=== PATIENT | female | born 1955 | race Caucasian/White ===

== ENCOUNTER 2016-11-03 12:26 | Emergency (ER) | payer MEDICARE, OTHER ==
[~2016-11-03] VITALS: Ht 165.1 cm; Wt 68.0 kg
[~2016-11-03 12:26] MED LIST: ADVAIR 250-501 EACH INH; ALBUTEROL2.5 MG/0.5 NEB; ALPRAZOLAM0.5 MG PO; AMITRIPTYLINE100 MG PO; BACLOFEN10 MG PO; BENEFIBER1 EAC1 PO; BUPROPION XL150 MG PO; CAPZASIN-HP42.5 GM TOP; CITALOPRAM HBR40 MG PO; COLACE100 MG; COMBIVENT RESPIM4 GM INH; GABAPENTIN300 MG PO; GINKGO BILOBA120 M1 PO; GREEN COFFEE B400 MG PO; IPRATROPIU0.2 MG/1 M INH; LISINOPRIL10 MG PO; MELATONIN5 M2 PO; MELOXICAM7.5 MG PO; MIRALAX17 GM PO; NORCO 10-325 T1 EACH PO; PROBIOTIC1 EAC1 PO; RANITIDINE HCL150 MG PO; ZINC GLUCONATE100 MG PO; [UNRECOGNIZED DRUG - OTHER] MC
[2016-11-03] MEDS ORDERED: PREDNISONE20 MG PO (13:05)
== END 2016-11-03 13:59 | disposition home or self-care (01) ==
LOC: ED 12:26
DX: G89.18 Other acute postprocedural pain (principal); M54.2 Cervicalgia; J44.9 Chronic obstructive pulmonary disease, unspecified; I10 Essential (primary) hypertension; Z87.891 Personal history of nicotine dependence; Z88.8 Allergy status to other drugs, medicaments and biological substances; Z79.51 Long term (current) use of inhaled steroids; Z79.899 Other long term (current) drug therapy; Z79.891 Long term (current) use of opiate analgesic
CPT/HCPCS: 96374; 99283; J1100

== ENCOUNTER 2016-11-16 18:03 | Inpatient (IN) | payer MEDICARE, OTHER ==
[~2016-11-16] VITALS: Ht 165.1 cm; Wt 76.7 kg
[~2016-11-16 18:03] MED LIST changes: +PREDNISONE20 MG PO
--- NOTE | 2016-11-17 00:45 | NUR ---
PT ARRIVED TO UNIT VIA STRETCHER FROM E.D. PT ALERT AND ORIENTED, WIMPERING AND GRIMACING. PT AMBULATED WITH SBA FROM STRETCHER TO BED. HISTORY AND ADMISSION ASSESSMENTS COMPLETE. PT ON 2 LPM O2 PT STATES SHE WEARS IT AT NIGHT, SATS 96%. PT DENIES ANY N/V AT THIS TIME. PT C/O "ESOPHAGUS" PAIN 07/20, PT STATES "MY ESOPHAGUS HURTS FROM ACID REFLUX", 0.6 MG IV DILAUDID GIVEN. IV FLUIDS INITIATED PER MD ORDERS. PT NOW RESTING QUIETLY IN BED. ICE CHIPS AND WATER AT BEDSIDE PER MD REQUEST. CALL LIGHT WITHIN REACH. PT DENIES ANY FURTHER NEEDS AT THIS TIME.
--- NOTE | 2016-11-17 03:45 | NUR ---
PT SLEEPING, RR EVEN AND UNLABORED. PT ON 2 LPM O2 WHILE SLEEPING. PT ON TELEMETRY, SINUS RHTYHM, HR 91. IV FLUIDS INFUSING WITHOUT DIFFICULTY. CALL LIGHT WITHIN REACH. PT APPEARS COMFORTABLE AT THIS TIME.
--- NOTE | 2016-11-17 07:10 | NUR ---
REPORT RECIEVED FROM PRUDENCE JAIN. PT MOANING AND STATES SHE IS A LOT OF PAIN. RN STATES SHE JUST HAD SOME. IVF INFUSING SLOW DUE TO SMALL IV
--- NOTE | 2016-11-17 08:55 | NUR ---
PT. IS TEARFUL AND ANXIOUS IN BED. SPEAKING WITH MOTHER ON PHONE. MORNING MEDS GIVEN, ASSESSMENT DONE, PT. BACK IN BED AFTER CXR. IV IS POSITIONAL.
--- NOTE | 2016-11-17 09:15 | NUR ---
PT. IS STILL TEARFUL IN BED. CLEAR LIQUIDS AT BEDSIDE. ADMINISTERED AB. PT. STATES THAT MD WAS IN ROOM SPEAKING WITH HER ABOUT HER CONDITION. PT. HAS NO FURTHER NEEDS AT THIS TIME.
--- NOTE | 2016-11-17 09:39 | NUR ---
PT. IN BATHROOM. PAIN MEDICATION GIVEN PER 11/19 PAIN. PT. REQUESTING ICE PACK FOR HEAD. NO FURTHER NEEDS AT THIS TIME.
--- NOTE | 2016-11-17 11:00 | NUR ---
PT. TEARFUL IN BED. PT. STATES THAT SHE IS ANXIOUS BUT HER MEDICATIONS HELP HER. MEDS ADMINISTERED. PAIN IS NOW AT 3/10 AFTER PAIN MEDICATION ADMINISTRATION. NO FURTHER NEEDS AT THIS TIME.
--- NOTE | 2016-11-17 11:05 | NUR ---
vitals done. BP 105/52.
--- NOTE | 2016-11-17 11:20 | NUR ---
PATIENT IN BED MOANING. FEELS CLAMY TO THE TOUCH. PULL PATIENTS HAIR UP INTO A PONYTAIL. FRESH ICE WATER GIVEN. ICE CHIPS GIVEN. CALL BUTTON IN REACH NO OTHER NEEDS AT THIS TIME.
--- NOTE | 2016-11-17 11:49 | NUR ---
PRUDENCE CARRILLO TRIED TO GET ANOTHER IV HAND IS VERY POSITIONAL. PT TOLERATED WELL. UNABLE TO GET NEW IV.
--- NOTE | 2016-11-17 12:37 | NUR ---
PT. UP TO BATHROOM. REQUESTING MEDICATION FOR ESOPHAGEAL UPSET. PAIN IS 5/10. NO OTHER NEEDS AT THIS TIME.
[2016-11-17] MEDS ORDERED: CLONAZEPAM0.5 MG PO (13:38)
[2016-11-17] MEDS ORDERED: LIPITOR40 MG PO (13:38)
[2016-11-17] MEDS ORDERED: CYMBALTA60 MG PO (13:39)
[2016-11-17] MEDS ORDERED: CYMBALTA30 MG PO (13:39)
[2016-11-17] MEDS ORDERED: SPIRIVA18 MCG INH (13:40)
[2016-11-17] MEDS ORDERED: OMEPRAZOLE20 MG PO (13:41)
[2016-11-17] MEDS ORDERED: CLOBETASOL PROP15 GM TOP (13:41)
[2016-11-17] MEDS ORDERED: PREMARIN0.625 MG PO (13:43)
[2016-11-17] MEDS ORDERED: CYCLOBENZAPRINE10 MG PO (13:43)
[2016-11-17] MEDS ORDERED: CENTRUM SILVER1 EAC3 PO (13:44)
[2016-11-17] MEDS ORDERED: INCRUSE ELLI62.5 MCG INH (13:45)
[2016-11-17] MEDS ORDERED: PREPARATION H1 EAC3 PR (13:46)
--- NOTE | 2016-11-17 13:47 | NUR ---
MED REC COMPLETE
--- NOTE | 2016-11-17 14:03 | NUR ---
PT. RESTING IN BED WATCHING TV. PT. STATES HAS 3/10 PAIN IN CHEST DUE TO STOMACH ACIDITY. PAIN MEDICATION STITCH BONDING MACHINE DRAWER IN PER EMAR. OTHER MEDICATIONS GIVEN. PT. CURIOUS ABOUT STOOL SAMPLE RESULTS. TOLD HER THERE ARE NO RESULTS YET. NO FURTHER NEEDS AT THIS TIME.
--- NOTE | 2016-11-17 14:10 | NUR ---
PT IN POSITION CLUTCHING PILLOW. SHE SAID HER PAIN IS 4-5. TEARS FLOWED SHE TOLD ME OF A RECENT NECK SURGERY THAT SHE WONDERS IS CAUSING HER PAIN. WE DEBRIEFED ABOUT THIS, PT REQUESTED PRAYER. PRAYED FOR WISDOM FOR THE MED STAFF. SHE THANKED ME FOR COMING IN. WILL CONTINUE TO FOLLOW
--- NOTE | 2016-11-17 15:30 | NUR ---
patient refused shower. would like to bathe when her daughter arrives to assist her. fresh ice water and ice chips given call button in reach no other needs at this time.
--- NOTE | 2016-11-17 15:47 | NUR ---
ORDER RECEIVED FOR PICC LINE CONSULT. PT'S CHART REVIEWED AND INFORMED CONSENT OBTAINED FROM PATIENT. SITE RITE ULTRASOUND USED TO IDENTIFY RIGHT BASILIC VEIN, WHICH APPEARS LARGER THAN 8 UKRAINIAN. 3 UKRAINIAN MIDLINE INSERTED USING STERILE TECHNIQUE WITHOUT DIFFICULTY. VERBAL REPORT GIVEN TO ROMEO CANALES RN AND SHE VERBALIZES UNDERSTANDING. PATIENT EDUCATION DONE AND SHE VERBALIZES UNDERSTANDING.
--- NOTE | 2016-11-17 16:22 | NUR ---
PT. RESTING IN BED WATCHING TV. MAALOX GIVEN FOR HEART BURN. NO FURTHER NEEDS AT THIS TIME.
--- NOTE | 2016-11-17 17:04 | NUR ---
TRANSFERED PT. TO CHAIR. WATCHING TELEVISION. DINNER AT BEDSIDE. STATES THAT SHE HAS REILEF OF EPIGASTRIC PAIN AFTER MAALOX ADMINISTRATION. NO FURTHER NEEDS AT THIS TIME.
--- NOTE | 2016-11-17 18:09 | NUR ---
PT. HAS BEEN TEARFUL AND ANXIOUS THROUGHOUT THE SHIFT. MEDICATIONS GIVEN PER EMAR. NO COMPLAINTS OF N/V AND HAD A FORMED STOOL IN THE AM. PT. ALSO COMPLAINED OF NECK PAIN AND STATED THAT SHE WEARS A NECK BRACE AT HOME. DAUGHTER BROUGHT NECK BRACE FROM HOME THIS EVENING. EPIGASTRIC PAIN WAS TREATED WITH MAALOX AND PT. STATES SHE HAD RELIEF AFTER ADMINISTRATION. PT. HAS EXTENSIVE BRUISING ON BUE. VITALS STABLE THROUGHOUT SHIFT. NO ACUTE CHANGES FROM BEGINNING OF SHIFT ASSESSMENT. INTENTIONAL ROUNDING DONE WITH ALL PATIENT'S NEEDS MET.
--- NOTE | 2016-11-17 18:22 | NUR ---
PT. STATES PAIN AT 6/10 EQPIGASTRIC PAIN. MEDICATION GIVEN PER EMAR. NO FURTHER NEEDS AT THIS TIME.
--- NOTE | 2016-11-17 20:00 | EKG ---
[facility] [address] [facility] [place], [place] [address] Signed Sinus tachycardia Otherwise normal ECG When compared with ECG of 24-APR-2016 10:03, No significant change was found Confirmed by QUINTIN MAXWELL MD ([id number]) on 11/17/2016 8:00:02 PM Electronically Signed By: QUINTIN MAXWELL MD 11/17/16 2000 PATIENT NAME: MARTINA PARK Electrocardiogram DATE OF : 59 PHYSICIAN: QUINTIN MAXWELL MD REPORT #: [id number] REPORT IS CONFIDENTIAL AND NOT TO BE RELEASED WITHOUT AUTHORIZATION
--- NOTE | 2016-11-17 20:30 | NUR ---
PT ANXIOUS AFTER DAUGHTER LEFT, WARM SPONGE BATH GIVEN AND ASSISTED INTO BED, CALMED DOWN, HS MEDS TAKEN, C/O HAVING INDIGESTION ALL DAY. NOT SO BAD NOW. CALL LIGHT IN EASY REACH.
--- NOTE | 2016-11-17 23:00 | NUR ---
PT RESTING WELL, SNORING SOME, IV PATENT. CALL LIGHT IN EASY REACH.
--- NOTE | 2016-11-18 03:20 | NUR ---
PT SLEEPING SOUNDLY, RESP EVEN AND UNLABORED, SCHEDULED ABX INFUSING. CALL LIGHT IN EASY REACH.
--- NOTE | 2016-11-18 05:55 | NUR ---
PT SLEPT WELL DURING THE NIGHT, WOKE EARLY AND IS ANGRY, STATES SHE WANTS TO LEAVE, MAKING PHONE CALLS AT THIS TIME, ASKED CHARGE NURSE TO SPEAK TO HER. PT STATED SHE WOKE HAVING BAD MEMORIES ABOUT THIS PLACE. ASKED TO BE LEFT ALONE. IVF PATENT. AGREED TO LET DRAGLINE MECHANIC DO VS. DENIES ANY PAIN OR NAUSEA THIS AM.
--- NOTE | 2016-11-18 07:23 | NUR ---
REPORT RECIEVED FROM PRUDENCE GAYLE USING 5 P'S. PT SLEEPING IN CHAIR. IV INFUSING WITHOUT DIFFICULTY. CALL LIGHT IN REACH. NO S/S DISTRESS.
--- NOTE | 2016-11-18 08:30 | NUR ---
nurse in with patient at this time.
--- NOTE | 2016-11-18 08:40 | NUR ---
SHOOTING GALLERY OPERATOR REPORTS FINDING SL IN PT BED. REPORTS PT TEARFUL AND ANXIOUS. RN TO ROOM. PT UP IN CHAIR. ROCKING BACK AND FORTH HOLDING HEAD. COMPLAINS OF PAIN IN HEAD AND "ESOPHOGUS". PT STATES "I JUST WANT SOME TYLENOL FOR MY HEAD. I DON'T WANT TO TAKE ANY OTHER MEDS." RN REMINDS PT THAT SHE HAS HER HOME ANXIETY MEDS DUE. PT AGREES TO TAKE ALL SCHEDULED MEDS, JUST WOULD LIKE TO HAVE ONLY TYLENOL FOR PAIN. GIVEN TYLENOL PER PT REQUEST. PT CONITNUES TO BE TEARFUL AND ANXIOUS. MAKING PHONE CALLS TO FAMILY. WORRIED ABOUT GRAND CHILDREN AT HOME. RN PROVIDED REASSURANCE AND SUPPORTIVE LISTENING. PT DENIES NEEDS. CALL LIGHT IN REACH.
--- NOTE | 2016-11-18 10:13 | NUR ---
PT GIVEN ATIVAN FOR CONTINUED ANXIETY. PT UP TO BR WITH NO SUCCESS. ASSISTED BACK TO BED. CALL LIGHT IN REACH. WATER AND TEA REFILLED. PT DENIES FURTHER NEEDS.
--- NOTE | 2016-11-18 10:53 | NUR ---
PT RESTING IN BED. STATES, "I FEEL ALOT MORE RELAXED." LR BOLUS STARTED AND POTASSIUM GIVEN ORDERED. PT DENIES FURTHER NEEDS. CALL LIGHT IN REACH.
--- NOTE | 2016-11-18 12:30 | NUR ---
PT UP TO SHOWER AFTER INCONTINENCE IN BED. BOLUS COMPLETE. PT FINISHED VOIDING LARGE AMOUNT IN TOILET. CRUSHER AND BINDER OPERATOR ASSISTING PT IN SHOWER.
--- NOTE | 2016-11-18 13:45 | NUR ---
JEWEL HOLE GAUGER IN WITH PT. PT SMILING AND LAUGHING WITH JEWEL HOLE GAUGER. GIVEN 1300 MEDICATIONS. CALL LIGHT IN REACH.
--- NOTE | 2016-11-18 14:08 | NUR ---
PT LAYING IN BED, SEEMS MUCH MORE RELAXED AND COMFORTABLE TODAY. SHE ADMITTED THAT WHATEVER I WAS GIVEN IT SEEMS TO HELP. DR MAXWELL AND RN REQUESTED I VISIT WITH PT. WE BEGAN TO TALK, PT BEGAN TO LAMENT THE FACT THAT SHE IS MISSING OUT ON HER G.KIDS LIVES. THE CHRONIC PAIN HAS SEEMED TO MAKE HER INTO A PERSON THAT DOESNOT ENJOY LIFE. WE DISCUSSED MAKING A PLAN FOR EACH DAY, CELEBRATING EACH SUCCESS-NO MATTER HOW SMALL. SHARED A SCRIPTURE WITH HER AND SHE ASKED IF I WOULD PRAY WITH HER. SHE HAS BEEN ATTENDING FIRST ASSEMBLY, BUT NOT FOR AWHILE. GOT HER LAUGHING AND JOKING SOME, SHE SAID IT FELT GOOD TO LAUGH. WILL CONTINUE TO FOLLOW
--- NOTE | 2016-11-18 14:45 | NUR ---
REPORT GIVEN TO PRUDENCE REID. PT RESTING IN BED. DENIES NAUSEA. CALL LIGHT IN REACH.
--- NOTE | 2016-11-18 15:19 | NUR ---
PT SLEEPING, LEFT UNDISTURBED.
--- NOTE | 2016-11-18 16:10 | NUR ---
PT SLEEPING. IV FLUIDS INFUSING AT 150 ML/HR. PT LEFT UNDISTURBED.
--- NOTE | 2016-11-18 17:40 | NUR ---
PATIENT SITTING UP IN CHAIR WATCHING TV. IN GOOD SPIRITS. FRESH ICE WATER GIVEN CALL BUTTON IN REACH. NO OTHER NEEDS AT THIS TIME.
--- NOTE | 2016-11-18 18:29 | NUR ---
PT ALERT/ORIENTED, HIGH ANXIETY. PT ON ROOM AIR. IV FLUIDS INFUSING AT 75 ML/HR. PT SBA TO BATHROOM. ADVANCED TO REGULAR DIET. PT WITH LOW URINE OUTPUT, FLUID BOLUS X1, NOW VOIDIDNG QS. STOOL SAMPLE NEEDED.
--- NOTE | 2016-11-18 20:00 | NUR ---
RECEIVED REPORT AT 1900. FOUND PT UP IN CHAIR EATING DINNER AND TOLERATING IT WELL. PT DENIES N/V. STOOL HAS BEEN FORMED AND LAB WAS UNABLE TO COMPLETE THE C-DIFF LAB. PT DENIES PAIN BUT STATED THAT SHE IS ANXIOUS.
--- NOTE | 2016-11-18 22:20 | NUR ---
PT AT THIS TIME IS IN BED. V/S WERE WNL, ALL ABD QUADRANTS HAVE HYPERACTIVE BOWEL TONES. PT STILL DENIES N/S OR DIARRHEA. PT NEEDED ATIVAN FOR HER ANXIETY.
--- NOTE | 2016-11-19 01:26 | NUR ---
PT IS STILL AWAKE IN BED. PT WOULD LIKE TO SEE THE CLIENT PARTNER IN THE MORNING DUE TO CONCERNS ABOUT HER CARE AT HOME. PT STATED TO ME THAT HER 8 TOMAS[address] OLD GRANDDAUGHTER IS TAKING CARE OF HER AND THAT SHE DOES NOT RECEIVE ANY HELP FORM HER DAUGHTER. PT IS STILL ANXIOUS
--- NOTE | 2016-11-19 02:46 | NUR ---
PT IS SLEEPING AT THIS TIME
--- NOTE | 2016-11-19 03:33 | NUR ---
PT IS STILL SLEEPING.
--- NOTE | 2016-11-19 05:39 | NUR ---
AT START OF SHIFT PT WAS VERY ANXIOUS. PT DID NOT FALL ASLEEP UNTIL AFTER MIDNIGHT. PT AT THIS TIME IS SL BECAUSE HER PO INTAKE IS SUFFICIENT AND SHE IS TOLERATING IT WELL. V/S ARE WNL. STILL UNABLE TO COLLECT STOOL SAMPLE DUE TO FORMED STOOLS.
--- NOTE | 2016-11-19 07:15 | NUR ---
BEDSIDE REPORT RECEIVED FROM RN. PT SLEEPING, PICC LINE SALINE LOCKED. BED IN LOW POSITION, CALL LIGHT WITHIN REACH.
--- NOTE | 2016-11-19 09:15 | NUR ---
ASKED BY OFFSET PLATE MAKER TO SEE PATIENT. PATIENT ASKING ABOUT INFORMATION FOR CAREGIVER. SPOKE WITH PATIENT IN ROOM. PATIENT IS UP IN CHAIR. STATES SHE LIVES WITH HER DAUGHTER, BUT HER DAUGHTER WORKS. STATES LAST TIME SHE HAD SURGERY HER GRANDDAUGHTER HELPED HER. PT STATES GRANDDAUGHTER IS 8 YEARS OLD. DISCUSSED THAT SHE IS TOO YOUNG FOR THAT RESPONSIBILITY. 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 SHE STATES SHE WANTS TO KNOW IF THERE ARE OTHER PEOPLE WHO COULD COME TO HER HOUSE TO HELP HER. PATIENT GIVEN A [employer] CARD AND DISCUSSED WITH HER SHE CAN CALL THAT NUMBER AND ASK TO SPEAK TO SOMEONE REGARDING IN-HOME CARE HELP. DISCUSSED PROCESS WITH PATIENT AT LENGTH. PT STATES UNDERSTANDING. I ASKED IF SHE WOULD LIKE ME TO TALK WITH HER DAUGHTER REGARDING THIS, SHE STATED "NO, SHE IS AT WORK". EXPLAINED I CAN CALL LATER PERHAPS OR SEE HER IF SHE IS COMING TO TAKE HER HOME. AGAIN PATIENT STATED NO, A FRIEND WAS TAKING HER HOME AND SHE DIDN'T WANT ME TO "BOTHER" HER DAUGHTER. SHE STATED SHE WILL CALL THE NUMBER ON THE CARD. PT HAS NO OTHER CONCERNS OR QUESTIONS.
--- NOTE | 2016-11-19 09:40 | NUR ---
RN CALLED DUE TO PATIENT C/O ANXIETY. PT UP IN CHAIR, ON ROOM AIR. NO C/O N/V. HAS NOT HAD BM. DR. OROZCO IN TO SEE PT WHILE RN AT BEDSIDE. PT REQUESTED SHOT OF ATIVAN TO HELP HER FURTHER CALM DOWN. DR. OROZCO AGREED TO ORDER. PICC LINE WNL, FLUSHED WITH HEPARIN.
--- NOTE | 2016-11-19 11:47 | NUR ---
PATIENT IS UP IN HER CHAIR SHE IS READY TO GO HOME TODAY.
--- NOTE | 2016-11-19 12:00 | NUR ---
PT TOLERATED LUNCH, NO C/O NAUSEA. PT FRIEND AT BEDSIDE WITH PT. PT STATES NO PAIN AT THIS TIME. PT SITTING IN CHAIR, CALL LIGHT WITHIN REACH.
--- NOTE | 2016-11-19 13:15 | NUR ---
PT READY FOR DC. PUBLIC RELATIONS ANALYST STAFF GETTING HER READY. SHE THANKED ME FOR VISITING, AND I REMINDED HER OF THE CHALLENGE WE DISCUSSED TO MAKE A PLAN FOR HER LIFE-AND TO CELEBRATE EACH VISTORY. GOD BLESS HER
--- NOTE | 2016-11-21 11:54 | DS ---
[facility] [address] [place], [place] [address] Signed DATE OF DISCHARGE: 11/19/16 FINAL DIAGNOSES Viral gastroenteritis. Dilated common bile duct (1.4 cm). PROCEDURES CT scan abdomen and pelvis. Ultrasound of right upper quadrant. Chest x-ray. Placement of PICC line right upper extremity. HISTORY OF PRESENT ILLNESS Martina is a 61-year-old with a significant past medical history. About 2 days or so prior to admission, she started to have generalized abdominal pain with nausea, vomiting, and diarrhea. She became progressively more dehydrated. She had also received a steroid shot in her back a few days prior to that. She was brought to the emergency room for evaluation. In the emergency room, she was dehydrated with a urine specific gravity of 1.062. Otherwise, her laboratory work was essentially unremarkable. She had a CT scan of the abdomen and pelvis performed and it was unremarkable except the common bile duct was dilated at 1.4 cm. She had an ultrasound performed of the right upper quadrant and the gallbladder shows some minimal sludge and again the common bile duct 1.[address] down to the ampulla. The liver was unremarkable. I have been asked to admit her as a general surgeon relationship manager. HOSPITAL COURSE Martina was admitted as above. She had initially received some antibiotics and IV hydration. We did ask the Internal Medicine service to see her as well. She rapidly improved after a couple of days of IV fluids. She does have poor peripheral IV access and she required a PICC line in her right basilic vein. We did send off stool studies and they are all still pending. With hydration, her hemoglobin did come down to 10.7 with a mean cell volume 87. Consequently, she is anemic. Otherwise, no significant findings. It is recommended if she wants to have her common bile duct evaluated, she could consider an MRCP so long as the MRI is okay following the fusion of her neck. Otherwise, she will need an endoscopic ultrasound and possible ERCP. At this point, she is markedly improved and told me that other people in the family are now sick with the same issues. Her daughter and grandkids are at home, but they have been able to stay hydrated. At this point, we are going to discharge her to home given her progress. DISCHARGE PLANS AND MEDICATIONS No new prescriptions are given. She can resume her chronic medications. She can continue her diet as tolerated at home. She is welcome to perform activities of daily living Electronically Signed By: KIKE OROZCO MD 11/21/16 1154 PATIENT NAME: MARTINA PARK DISCHARGE SUMMARY DATE OF : 59 PHYSICIAN: KIKE OROZCO MD REPORT #: [id number] REPORT IS CONFIDENTIAL AND NOT TO BE RELEASED WITHOUT AUTHORIZATION [address] [address] Signed including walking up and down stairs and showering bathing as usual. She can follow up with her primary care provider, Chris Sanabria in next 1-3 weeks. She might consider the MRCP of her bile duct so long as she can have an MRI after the cervical fusion. Otherwise, she will need endoscopic ultrasound with possible ERCP if she wants to pursue the common bile duct dilation. She can follow up my office as needed. She also is anemic and needs to follow up with her primary care provider. I have reviewed this with Martina in detail. She has expressed understanding and agrees above plan. MD WILFRED Soares/Angelia /[id number] cc: MD Kike Escamilla MD Electronically Signed By: KIKE OROZCO MD 11/21/16 1154 PATIENT NAME: MARTINA PARK DISCHARGE SUMMARY DATE OF : 59 PHYSICIAN: KIKE OROZCO MD REPORT #: [id number] REPORT IS CONFIDENTIAL AND NOT TO BE RELEASED WITHOUT AUTHORIZATION
--- NOTE | 2016-12-19 08:29 | CONS ---
[facility] [address] [place], [place] [address] Signed DATE OF CONSULTATION: 12/16/16 REFERRING PROVIDER: Braden Tee MD CHIEF COMPLAINT: Nausea, vomiting, diarrhea. HISTORY OF PRESENT ILLNESS Martina is a 61-year-old female, who is complaining of generalized abdominal pain associated with nausea, vomiting, and diarrhea for a couple of days. She also had a steroid shot in her back just a few days ago. She comes to the emergency room for evaluation. In the emergency room, she had a high fever of 102.8. She seemed tearful, but otherwise abdomen was not particularly concerning. White count was borderline at 12.2. Her urine specific gravity was elevated consistent with dehydration. Lactic acid was normal. Ultrasound of the liver showed minimal sludge in the gallbladder, but the common bile duct was dilated at 1.4 cm. The liver was otherwise unremarkable. A CT scan was then performed and again the common bile duct dilated liver is unremarkable, gallbladder is unremarkable and the pancreas is unremarkable. Consequently, I had been asked to admit her as a general surgeon on-call. PAST MEDICAL HISTORY Kidney stones, COPD, hypertension, and lumbago. PAST SURGICAL HISTORY Cervical fusion, her tympanic membrane, bilateral tubal ligation. SOCIAL HISTORY She quit smoking a year ago. She does not drink. Her daughter is Ashley Christian at [phone]. DIPESH Macedo is her primary care provider. She prefers the [facility]. FAMILY HISTORY: Not sure about mom. Dad has a pacemaker. REVIEW OF SYSTEMS The right 10 systems reviewed. All the pertinent positives include the above. ALLERGIES: Prednisone. MEDICATIONS Meloxicam, MiraLAX, Probiotic, coffee extract, [place] 5 mg, Ipratropium, Lisinopril, Melatonin, Ranitidine, Zinc, Advair, Albuterol, Alprazolam, Amitriptyline, Baclofen, Gonzáles Extract, Benefiber, Bupropion, Capsaicin, Citalopram, Combivent, Gabapentin , Gingko Biloba. Electronically Signed By: KIKE OROZCO MD 12/19/16 0829 PATIENT NAME: MARTINA PARK CONSULTATION DATE OF : 59 PHYSICIAN: KIKE OROZCO MD REPORT #: [id number] REPORT IS CONFIDENTIAL AND NOT TO BE RELEASED WITHOUT AUTHORIZATION [facility] [address] [place], [place] [address] Signed PHYSICAL EXAMINATION VITAL SIGNS: Blood pressure is 106/54, heart rate is 91, her respiratory rate 16, her temperature as 102.8. She is 98% on room air. She is 5 feet 5 inches, 68 kg exam. GENERAL: Martina is a 61-year-old female, lying supine in her hospital bed. She is emotional and tearful. LUNGS: Have moderately distant breath sounds. HEART: Regular rate and rhythm. ABDOMEN: Soft and flat and nontender. LABORATORY DATA Her white blood count is 12.2, hemoglobin 14, Neutrophils 86, BUN 16, Creatinine 0.59. Urine Specific [place] elevated at 1.062. Liver function test unremarkable. Albumin is 4.4, Lipase 10. Blood cultures pending. Lactic acid 0.9. RADIOGRAPHIC STUDIES Ultrasound of the right upper quadrant shows an unremarkable liver, but the common bile duct was dilated at 1.4 cm. There appears to be a minimal sludge in her gallbladder. CT scan of the abdomen and pelvis shows the unremarkable liver with a dilated common bile duct and unremarkable pancreas. ASSESSMENT AND PLAN Martina is a 61-year-old female, who presents with what appears to be a viral illness with the nausea, vomiting, dehydration. She does have a dilated common bile duct, but I think that is a secondary issue at this point. She could consider an MRCP so long as the metal in her fusion is compatible in that regard. Otherwise, she will need an ERCP or an ultrasound to evaluate her distal common bile duct or she could consider having the gallbladder removed at some point with an intraoperative cholangiogram. However, at this point, I think her main issue is the nausea, vomiting, dehydration with a viral illness and we are going to consult our Internal Medicine service. We will repeat the labs and check a chest x-ray as well. I have discussed this with the patient a s well as our hospitalist, Dr. Chang. They have expressed understanding and agreed above plan. MD WILFRED Soares/Modl /[id number] Electronically Signed By: KIKE OROZCO MD 12/19/16 0829 PATIENT NAME: MARTINA PARK CONSULTATION DATE OF : 59 PHYSICIAN: KIKE OROZCO MD REPORT #: [id number] REPORT IS CONFIDENTIAL AND NOT TO BE RELEASED WITHOUT AUTHORIZATION [address] [address] Signed cc: DIPESH Macedo Electronically Signed By: KIKE OROZCO MD 12/19/16 0829 PATIENT NAME: MARTINA PARK CONSULTATION DATE OF : 59 PHYSICIAN: KIKE OROZCO MD REPORT #: [id number] REPORT IS CONFIDENTIAL AND NOT TO BE RELEASED WITHOUT AUTHORIZATION
== END 2016-11-19 13:00 | disposition home or self-care (01) | DRG 392 ==
LOC: ED 18:03 → MS 18:05
PROVIDERS: ADMIT Colon & Rectal Surgery
PROC: 05H533Z Insertion of Infusion Device into Right Subclavian Vein, Percutaneous Approach (ICD-10-PCS; principal; 2016-11-17 14:45)
DX: A08.4 Viral intestinal infection, unspecified (principal); K83.8 Other specified diseases of biliary tract; I10 Essential (primary) hypertension; J44.9 Chronic obstructive pulmonary disease, unspecified; K21.9 Gastro-esophageal reflux disease without esophagitis; F39 Unspecified mood [affective] disorder; F41.9 Anxiety disorder, unspecified; M54.5 Low back pain; F51.04 Psychophysiologic insomnia; M54.16 Radiculopathy, lumbar region; M54.12 Radiculopathy, cervical region; E86.0 Dehydration; E78.5 Hyperlipidemia, unspecified; Z87.891 Personal history of nicotine dependence; Z79.899 Other long term (current) drug therapy
CPT/HCPCS: 36415; 36556; 51701; 71020; 74177; 76705; 76942; 80048; 80053; 81001; 83605; 83690; 83735; 84100; 85025; 87040; 87045; 87046; 87077; 87177; 87205; 87209; 87798; 93005; 93010; 94640; 94760; 96361; 96374; 96375; 96376; 99285; J0692; J1170; J1644; J2060; J2405; J2550; J7030; J7120; Q9967

== ENCOUNTER 2018-02-14 12:39 | Emergency (ER) | payer MEDICARE ==
[~2018-02-14] VITALS: Ht 165.1 cm; Wt 76.7 kg
--- OUTSIDE RECORDS SUMMARY | ~2018-02-14 | XMS | Clinical Summary ---
Demographics + + + | Address | [address] | | | [place] [address] | + + + | Home Phone | | + + + | Preferred Language | Unknown | + + + | Marital Status | | + + + | Restorationism Affiliation | 1013 | + + + | Race | Unknown | + + + | Ethnic Group | Unknown | + + + Author + + + | Author | [facility] | | | and [place] | + + + | Organization | [facility] | | | and [place] | + + + | Address | Unknown | + + + | Phone | Unavailable | + + + Support + + +---------+ + | Name | Relationship | Address | Phone | + + +---------+ + | Aris Park | ECON | Unknown | | + + +---------+ + | Ashley Pulido | ECON | Unknown | | + + +---------+ + | Radha Ho | ECON | Unknown | | + + +---------+ + Care Team Providers + +------+ + | Care Repair Electric Motor Assembler Name | Role | Phone | + +------+ + | Chris Sanabria PA-C | PP | | + +------+ + Allergies + + + + + + | Active Allergy | Reactions | Severity | Noted | Comments | | | | | Date | | + + + + + + | Paroxetine | Swelling | High | 11/07/19 | | | | | | 15 | | + + + + + + Current Medications + + +---------+---------+------+------+-------+ | Prescription | Sig. | Disp. | Refills | Star | End | Statu | | | | | | t | Date | s | | | | | | Date | | | + + +---------+---------+------+------+-------+ | lisinopril | Take 10 mg by mouth | | | | | Activ | | (PRINIVIL, ZESTRIL) | Daily. | | | | | e | | 10 mg tablet | | | | | | | + + +---------+---------+------+------+-------+ | Melatonin 1 MG | Take 5 mg by mouth | | | | | Activ | | TABS | nightly as needed, | | | | | e | | | may repeat x 1. | | | | | | + + +---------+---------+------+------+-------+ | clonazePAM | Take 0.5 mg by mouth | | | | | Activ | | (KLONOPIN) 0.5 mg | 2 times daily. | | | | | e | | tablet | | | | | | | + + +---------+---------+------+------+-------+ | omeprazole | Take 20 mg by mouth | | | | | Activ | | (PRILOSEC) 20 mg | every morning | | | | | e | | capsule | (before breakfast). | | | | | | + + +---------+---------+------+------+-------+ | DULoxetine | Take 60 mg by mouth | | | | | Activ | | (CYMBALTA) [address] | Daily. | | | | | e | | capsule | | | | | | | + + +---------+---------+------+------+-------+ | clobetasol | Apply topically | | | | | Activ | | (TEMOVATE) 0.05% | Twice a week. | | | | | e | | ointment | | | | | | | + + +---------+---------+------+------+-------+ | simvastatin | Take 40 mg by mouth | | | | | Activ | | (ZOCOR) 40 mg tablet | nightly. | | | | | e | + + +---------+---------+------+------+-------+ | amitriptyline | Take 100 mg by mouth | | | | | Activ | | (ELAVIL) 100 MG | nightly. None x | | | | | e | | tablet | 24hours | | | | | | + + +---------+---------+------+------+-------+ | estrogens, | Take 0.625 mg by | | | | | Activ | | conjugated, | mouth. 2 times a | | | | | e | | (PREMARIN) 0.625 mg | week | | | | | | | tablet | | | | | | | + + +---------+---------+------+------+-------+ | raNITIdine | Take 150 mg by mouth | | | | | Activ | | (ZANTAC) 150 mg | Daily. | | | | | e | | tablet | | | | | | | + + +---------+---------+------+------+-------+ | Bisacodyl | Take by mouth as | | | | | Activ | | (DULCOLAX PO) | needed. | | | | | e | + + +---------+---------+------+------+-------+ | oxygen | Inhale 2 L into the | | | | | Activ | | | lungs nightly. | | | | | e | + + +---------+---------+------+------+-------+ | atorvaSTATin | Take 40 mg by mouth | | | 09/10 | | Activ | | (LIPITOR) 40 mg | Daily. | | | 09/29 | | e | | tablet | | | | 18 | | | + + +---------+---------+------+------+-------+ | ARIPIPRAZOLE PO | Take 20 mg by mouth | | | | | Activ | | | Daily. | | | | | e | + + +---------+---------+------+------+-------+ | | Take 3 mLs by | | | | | Activ | | albuterol-ipratropiu | nebulization every 4 | | | | | e | | m 2.5-0.5 mg/3 mL | hours as needed for | | | | | | | SOLN | Shortness of | | | | | | | | Breath. | | | | | | + + +---------+---------+------+------+-------+ | gabapentin | Take 300 mg by mouth | | | | | Activ | | (NEURONTIN) 300 mg | 3 times daily. | | | | | e | | capsule | | | | | | | + + +---------+---------+------+------+-------+ | tiotropium | Inhale 2 puffs into | 1 | 5 | 09/0 | | Activ | | (SPIRIVA RESPIMAT) | the lungs Daily. | Inhaler | | 7/20 | | e | | 2.5 mcg/puff | | | | 18 | | | | inhalerIndications: | | | | | | | | COPD, moderate (HCC) | | | | | | | + + +---------+---------+------+------+-------+ | baclofen | Take 10 mg by mouth | | | | | Activ | | (LIORESAL) 10 mg | Daily as needed. | | | | | e | | tablet | | | | | | | + + +---------+---------+------+------+-------+ | | Inhale 1 puff into | 1 | 11 | 10/0 | | Activ | | albuterol-ipratropiu | the lungs every 4 | Inhaler | | 5/20 | | e | | m (COMBIVENT | hours as needed for | | | 18 | | | | RESPIMAT) 100-20 | Shortness of Breath. | | | | | | | mcg/puff inhaler | | | | | | | + + +---------+---------+------+------+-------+ Active Problems + + + | Problem | Noted Date | + + + | Cervical dystonia | 10/26/2017 | + + + | Incontinence of urine | 10/04/2017 | + + + | History of fusion of cervical spine | 12/30/2016 | + + + | Oropharyngeal dysphagia | 10/25/2016 | + + + | ERRONEOUS ENCOUNTER--DISREGARD | 04/17/2016 | + + + | Hypoxemia | 12/13/2015 | + + + | COPD, moderate (HCC) | 04/02/2015 | + + + | Calcified granuloma of lung (HCC) | 01/30/2015 | + + + | Anxiety | 01/30/2015 | + + + | Hypertension | 01/30/2015 | + + + | GERD (gastroesophageal reflux disease) | 01/30/2015 | + + + | Cervical radiculopathy | 01/22/2015 | + + + | Foraminal stenosis of cervical region | 01/22/2015 | + + + | Facet arthritis of cervical region (HCC) | 01/22/2015 | + + + | Lumbar radiculopathy | 01/22/2015 | + + + | Lumbar foraminal stenosis | 01/22/2015 | + + + | Chronic radicular pain of lower back | 11/14/2014 | + + + | DDD (degenerative disc disease), lumbar | 11/14/2014 | + + + | Chronic neck pain | 11/14/2014 | + + + | DDD (degenerative disc disease), cervical | 11/14/2014 | + + + | Sacroiliitis, not elsewhere classified (HCC) | 11/14/2014 | + + + | High cholesterol | | + + + Resolved Problems + + + + | Problem | Noted | Resolved | | | Date | Date | + + + + | COPD exacerbation (HCC) | 12/04/19 | | | | 18 | 8 | + + + + | COPD (chronic obstructive pulmonary disease) (HCC) | 01/31/20 | | | | 15 | 5 | + + + + | Tobacco abuse | 01/31/20 | | | | 15 | 6 | + + + + | Tobacco dependence syndrome | 01/16/20 | | | | 11 | 8 | + + + + | COPD (chronic obstructive pulmonary disease) (HCC) | | | | | | 8 | + + + + Encounters +--------+ + + + + | Date | Type | Specialty | Care Team | Description | +--------+ + + + + | 01/14/ | Office | | Guy Martínez, | COPD, moderate (HCC) | | 2017 | Visit | | MD | (Primary Dx); | | | | | | Hypoxemia; Need for | | | | | | influenza | | | | | | vaccination; Need | | | | | | for pneumococcal | | | | | | vaccine | +--------+ + + + + | 12/17/ | Office | | Guy Martínez, | COPD, moderate (HCC) | | 2017 | Visit | | MD | (Primary Dx); | | | | | | Hypoxemia | +--------+ + + + + | 12/03/ | Office | | Guy Martínez, | COPD, moderate (HCC) | | 2017 | Visit | | MD | (Primary Dx); COPD | | | | | | exacerbation (HCC); | | | | | | Hypoxemia | +--------+ + + + + | 11/26/ | Ancillary | | Provider, | | | 2017 | Orders | | HistoricalMD | | +--------+ + + + + | 11/19/ | Imaging | | Provider, | | | 2017 | Exam | | MD John | | +--------+ + + + + from Last 3 Months Immunizations + + + + | Name | Dates Previously Given | Next Due | + + + + | INFLUENZA 67 Y OR >, | 03/18/2015 | | | TRIVALENT HIGH-DOSE | | | + + + + | INFLUENZA PF | 01/14/2018 | | | QUAD(PED/ADOL/ADULT) | | | | ,PSKT or VIAL | | | + + + + | INFLUENZA, | 02/06/2011 | | | UNSPECIFIED | | | | FORMULATION | | | + + + + | PNEUMOCOCCAL | 01/14/2018 | | | CONJUGATE 13-VALENT | | | | (PCV13) | | | + + + + | PNEUMOCOCCAL | 04/02/2015 | | | POLYSACCHARIDE | | | | 23-VALENT (PPSV23) | | | + + + + | PNEUMOCOCCAL, | 04/12/2008 | | | UNSPECIFIED | | | | FORMULATION | | | + + + + Family History + + +------+ + | Medical History | Relation | Name | Comments | + + +------+ + | Seizures | Brother | | | + + +------+ + | Mental illness | Brother | | | + + +------+ + | Alcohol abuse | Brother | | | + + +------+ + | Migraines | Child | | | + + +------+ + | Other (see comment) | Child | | vertigo | + + +------+ + | Other (see comment) | Child | | hair loss | + + +------+ + | Arthritis | Father | | | + + +------+ + | Dementia | Father | | | + + +------+ + | Diabetes | Father | | | + + +------+ + | Gout | Father | | | + + +------+ + | Heart disease | Father | | Pacemaker | + + +------+ + | Hypertension | Father | | | + + +------+ + | Pacemaker | Father | | | + + +------+ + | * | Mother | | health staff unknown | + + +------+ + | Gout | Other | | | + + +------+ + | Heart attack | Paternal | | | | | Grandmoth | | | | | er | | | + + +------+ + | Heart attack | Sister | | | + + +------+ + | * | Sister | | Cause of unknown | + + +------+ + + +------+ + + | Relation | Name | Status | Comments | + +------+ + + | Brother | | | | + +------+ + + | Brother | | | | + +------+ + + | Brother | | | | + +------+ + + | Child | | | | + +------+ + + | Child | | | | + +------+ + + | Child | | | | + +------+ + + | Father | | Alive | | + +------+ + + | Mother | | Other | | + +------+ + + | Other | | | | + +------+ + + | Paternal Grandmother | | | heart attack | | | | (Age | | | | | 40) | | + +------+ + + | Sister | | | heart attack | | | | (Age | | | | | 42) | | + +------+ + + | Sister | | | Internal shut down | | | | (Age | | | | | 45) | | + +------+ + + Social History + + + +--------+ + | Tobacco Use | Types | Packs/Day | Years | Date | | | | | Used | | + + + +--------+ + | Former Smoker | Cigarettes | 1 | 47 | 12/12/1972 - | | | | | | 08/27/2015 | + + + +--------+ + + +------+---+---+ | Smokeless Tobacco: | Chew | | | | Never Used | | | | + +------+---+---+ + + | Tobacco Cessation: Counseling Given: No | + + + + +---------+ + | Alcohol Use | Drinks/We | oz/Week | Comments | | | ek | | | + + +---------+ + | Yes | 0 | 0.0 | every 6 months | | | Standard | | | | | drinks or | | | | | | | | | | equivalen | | | | | t | | | + + +---------+ + + + + | Sex Assigned at | Date Recorded | | | | + + + | Not on file | | + + + Last Filed Vital Signs + + + + | Vital Sign | Reading | Time Taken | + + + + | Blood Pressure | 142/80 | 01/14/20185 PDT | + + + + | Pulse | 86 | 01/14/20181124 PDT | + + + + | Temperature | 37.6 C (99.6 F) | 12/08/2016 1849 PDT | + + + + | Respiratory Rate | 16 | 12/08/20161 PDT | + + + + | Oxygen Saturation | 92% | 01/14/20181124 PDT | + + + + | Inhaled Oxygen | - | - | | Concentration | | | + + + + | Weight | 79.4 kg (175 lb 0.7 | 01/14/20181124 PDT | | | oz) | | + + + + | Height | 165.1 cm (5' 5") | 01/14/2018 1125 PDT | + + + + | Body Mass Index | 29.13 | 01/14/20185 PDT | + + + + Plan of Treatment +--------+---------+ + + + | Date | Type | Specialty | Care Team | Description | +--------+---------+ + + + | 07/15/ | Office | | Guy Martínez, | | | 2018 | Visit | | MD Beka Oconnor | | | | | | [place], [address] | | | | | | [place] | | | | | | [address] | | | | | | | | +--------+---------+ + + + + + + + + | Health Maintenance | Due Date | Last Done | Comments | + + + + + | Hepatitis C | | | | | Screening | 8 | | | + + + + + | Vaccine: | | | | | Dtap/Tdap/Td (1 - | 7 | | | | Tdap) | | | | + + + + + | Cervical Cancer | | | | | Screening (Pap) | 8 | | | + + + + + | BREAST CANCER | | | | | SCREENING (MAMM Q2 | 8 | | | | YEARS 50-74) | | | | + + + + + | Colorectal Cancer | | | | | Screening | 8 | | | | (Colonoscopy) | | | | + + + + + | Vaccine: Zoster (1 | | | | | of 2) | 8 | | | + + + + + | Lung Cancer | | | | | Screening | 3 | | | + + + + + | Adult Annual | | | | | Wellness Visit | 5 | | | + + + + + | Vaccine: | Completed | 04/02/2015 | | | Pneumococcal 19-64 | | | | | (PPSV23 only) Medium | | | | | Risk | | | | + + + + + | Vaccine: Influenza | Completed | 01/14/2018, 03/18/2015, | | | | | 02/06/2011 | | + + + + + Implants + +--------+--------+ +--------+--------+--------+ | Implanted | Type | Area | Manufacture | Device | Expira | Model | | | | | r | | tion | / | | | | | | Identi | Date | Serial | | | | | | fier | | / Lot | + +--------+--------+ +--------+--------+--------+ | Imp Spn Nelly Peek [id number] - | Generi | Anteri | [employer] - | | 07/02/ | [id number] | | [id number]: Qty: 1 | c | or: | MEDT | | 2024 | 1 / | | on 10/23/2016 by David, | | Spine | | | | /42DM | | Margarito Ramírez DO | | Cervjosue | | | | | | | | al | | | | | + +--------+--------+ +--------+--------+--------+ | Imp Spn Nelly Peek [id number] - | Generi | Anteri | [employer] - | | 05/15/ | [id number] | | [id number]: Qty: 1 | c | or: | MEDT | | 2024 | 1 / | | on 10/23/2016 by David, | | Spine | | | | /64DG | | Margarito Ramírez DO | | Cervic | | | | | | | | al | | | | | + +--------+--------+ +--------+--------+--------+ | Imp Spn Nelly Peek [id number] - | Generi | Anteri | [employer] - | | 07/02/ | [id number] | | [id number]: Qty: 1 | c | or: | MEDT | | 2024 | 1 / | | on 10/23/2016 by David, | | Spine | | | | /42DM | | Margarito Ramírez DO | | Cervic | | | | | | | | al | | | | | + +--------+--------+ +--------+--------+--------+ | Anselmo Bellamy 5c Dbm - | Graft | Anteri | [employer] - | | 06/21/ | [id number] | | [id number]: Qty: 1 | | or: | MEDT | | 2020 | [id number] | | on 10/23/2016 by David, | | Spine | | | | 2-100 | | Margarito Ramírez DO | | Cervic | | | | / | | | | al | | | | | + +--------+--------+ +--------+--------+--------+ | Plate Ant [place] Cerv | Plate | Anteri | [employer] - | | | [id number] | | 57.5mm - [id number]: | | or: | MEDT | | | | | Qty: 1 on 10/23/2016 by | | Spine | | | | | | Margarito Hernandez DO | | Cervic | | | | | | | | al | | | | | + +--------+--------+ +--------+--------+--------+ | Screw Slf-Drl V/A 4.0x14mm - | Screw | Anteri | [employer]OR | | | [id number] | | [id number]: Qty: 7 on | | or: | KENIA - DIV | | | / | | 10/23/2016 by Margarito Hernandez | | Spine | [employer] | | | | | DO Darrell | | Cervic | - SFDK | | | | | | | al | | | | | + +--------+--------+ +--------+--------+--------+ | Screw Slf-Drl V/A 4.0x13mm - | Screw | Anteri | SOFAMOR | | | [id number] | | [id number]: Qty: 1 on | | or: | DANEK - DIV | | | 3 / / | | 10/23/2016 by Margarito Hernandez | | Spine | [employer] | | | | | A DO | | Lois | - SFDK | | | | | | | al | | | | | + +--------+--------+ +--------+--------+--------+ Procedures + +--------+ + + + | Procedure Name | Priori | Date/Time | Associated Diagnosis | Comments | | | ty | | | | + +--------+ + + + | XR CERVICAL SPINE 2 | Routin | 11/19/2017 | | Results for this | | OR 3 VIEWS | e | 1300 PDT | | procedure are in the | | | | | | results section. | + +--------+ + + + from Last 3 Months Results XR Cervical Spine 2 or 3 Views (11/19/2017 1300) + + + | Narrative | Performed At | + + + | External films for comparison only | [facility] | | | | | No results will be in the chart. | | + + + + +---------+ + + | Performing | Address | City/State/Zipcode | Phone Number | | Organization | | | | + +---------+ + + | [facility] | | | | + +---------+ + + from Last 3 Months Insurance + +--------+ +--------+ +---------+ | Payer | Benefi | Subscriber | Type | Phone | Address | | | t Plan | ID | | | | | | / | | | | | | | Group | | | | | + +--------+ +--------+ +---------+ | MEDICARE | MEDICA | [id number] | Medica | [phone] | | | RE | | re | [phone] | | | | PART A | | | | | | | AND B | | | | | + +--------+ +--------+ +---------+ + +--------+ +--------+ + + | Guarantor Name | Accoun | Relation to | Date | Phone | Billing Address | | | t Type | Patient | of | | | | | | | | | | + +--------+ +--------+ + + | [employer] [employer] | Person | Self [birth year] | Home: | [address] | | | al/[place] | | 1956 | [phone] | [place] [address] | | | [place] | | | [phone] | | + +--------+ +--------+ + +
--- OUTSIDE RECORDS SUMMARY | ~2018-02-14 | XMS | Encounter Summary ---
Demographics + + + | Address | [address] | | | [place] [address] | + + + | Home Phone | | + + + | Preferred Language | Unknown | + + + | Marital Status | | + + + | Bahai Affiliation | 1013 | + + + | Race | Unknown | + + + | Ethnic Group | Unknown | + + + Author + + + | Author | [facility] | | | and [place] | + + + | Organization | [facility] | | | and [place] | + + + | Address | Unknown | + + + | Phone | Unavailable | + + + Support + + +---------+ + | Name | Relationship | Address | Phone | + + +---------+ + | Aris Dooley | ECON | Unknown | | + + +---------+ + | Ashley Pulido | ECON | Unknown | | + + +---------+ + | Radha Ho | ECON | Unknown | | + + +---------+ + Care Team Providers + +------+ + | Care Drum Tester Name | Role | Phone | + +------+ + | Chris Sanabria PA-C | PCP | | + +------+ + Encounter Details +--------+ + + + + | Date | Type | Department | Care Team | Description | +--------+ + + + + | 11/19/ | Imaging | [facility] | Provider, | | | 2018 | Exam | [facility] | MD [facility] [address] | | | | | IMAGING | [address] | | | | | [phone] | [place] [address] | | +--------+ + + + + Social History + + + [...] | | | + +------+---+---+ + + +---------+ + | Alcohol Use [...] on file | | + + + as of this encounter Plan of Treatment +--------+---------+ + + + | Date | Type | Specialty | Care Team | Description | +--------+---------+ + + + | 07/15/ | Office | Pulmonology | Guy Martínez, | | | 2019 | Visit | | [address] | | | | | | [place], [address] | | | | | | [place], [place] | | | | | | [address] | | | | | | | | +--------+---------+ + + + as of this encounter Procedures + +--------+ + + + | [...] section. | + +--------+ + + + in this encounter Results XR Cervical Spine 2 or 3 [...] | | | + +---------+ + + in this encounter Visit Diagnoses Not on filein this encounter"
--- OUTSIDE RECORDS SUMMARY | ~2018-02-14 | XMS | Clinical Summary ---
Demographics + + + | Address | [address] | | | [place] [address] | + + + | Home Phone | | + + + | Preferred Language | Unknown | + + + | Marital Status | | + + + | Anglican Affiliation | Unknown | + + + | Race | Unknown | + + + | Ethnic Group | Unknown | + + + Author + + + | Author | [facility] | + + + | Organization | [facility] | + + + | Address | Unknown | + + + | Phone | Unavailable | + + + Support +--------+ +---------+ + | Name | Relationship | Address | Phone | +--------+ +---------+ + | No,One | ECON | Unknown | | +--------+ +---------+ + Care Team Providers + +------+ + | Care Net Making Supervisor Name | Role | Phone | + +------+ + | Chris Sanabria | PP | Unavailable | + +------+ + Allergies + + + + + + | Active Allergy | Reactions | Severity | Noted | Comments | | | | | Date | | + + + + + + | Paroxetine | Swelling | High | 11/07/19 | | | | | | 15 | | + + + + + + Current Medications + + +-------+---------+------+------+-------+ | Prescription | Sig. | Disp. | Refills | Star | End | Statu | | | | | | t | Date | s | | | | | | Date | | | + + +-------+---------+------+------+-------+ | albuterol | 2.5 mg. | | | 12/0 | | Activ | | (PROVENTIL) (2.5 | | | | 7/20 | | e | | MG/3ML) 0.083% | | | | 15 | | | | nebulizer solution | | | | | | | + + +-------+---------+------+------+-------+ | | Inhale 1 puff into | | | | | Activ | | ipratropium-albutero | the lungs. | | | | | e | | l (COMBIVENT | | | | | | | | RESPIMAT) 20-100 | | | | | | | | MCG/ACT inhaler | | | | | | | + + +-------+---------+------+------+-------+ | amitriptyline | Take 100 mg by | | | | | Activ | | (ELAVIL) 100 MG | mouth. | | | | | e | | tablet | | | | | | | + + +-------+---------+------+------+-------+ | bisacodyl | Take by mouth. | | | | | Activ | | (DULCOLAX) 5 MG EC | | | | | | e | | tablet | | | | | | | + + +-------+---------+------+------+-------+ | clobetasol | Apply topically. | | | | | Activ | | (TEMOVATE) 0.05 % | | | | | | e | | ointment | | | | | | | + + +-------+---------+------+------+-------+ | cyclobenzaprine | Take 5-10 mg by | | | /1 | | Activ | | (FLEXERIL) 10 MG | mouth. | | | 5/20 | | e | | tablet | | | | 17 | | | + + +-------+---------+------+------+-------+ | clonazePAM | Take 0.5 mg by | | | | | Activ | | (KLONOPIN) 0.5 MG | mouth. | | | | | e | | tablet | | | | | | | + + +-------+---------+------+------+-------+ | | Inhale 1 puff into | | | 06/3 | | Activ | | ipratropium-albutero | the lungs. | | | 0/20 | | e | | l (COMBIVENT | | | | 17 | | | | RESPIMAT) 20-100 | | | | | | | | MCG/ACT inhaler | | | | | | | + + +-------+---------+------+------+-------+ | DULoxetine | Take 120 mg by | | | | | Activ | | (CYMBALTA) [address] | mouth. | | | | | e | | capsule | | | | | | | + + +-------+---------+------+------+-------+ | gabapentin | Take one tablet | | | 08/0 | | Activ | | (NEURONTIN) 300 MG | orally on day 1Take | | | 4/20 | | e | | capsule | one tablet orally in | | | 17 | | | | | the morning and the | | | | | | | | evening on day | | | | | | | | twoTake one tablet | | | | | | | | with breakfast, | | | | | | | | lunch, and dinner | | | | | | | | daily until | | | | | | | | instructed | | | | | | | | otherwise. | | | | | | + + +-------+---------+------+------+-------+ | | Take 1-2 tablets by | | | 08/0 | | Activ | | HYDROcodone-acetamin | mouth. | | | 4/20 | | e | | ophen (NORCO) 10-325 | | | | 17 | | | | MG per tablet | | | | | | | + + +-------+---------+------+------+-------+ Active Problems No known active problems Social History + +-------+ +--------+------+ | Tobacco Use | Types | Packs/Day | Years | Date | | | | | Used | | + +-------+ +--------+------+ | Never Assessed | | | | | + +-------+ +--------+------+ + + + | Sex Assigned at | Date Recorded | | | | + + + | Not on file | | + + + Last Filed Vital Signs + + + + | Vital Sign | Reading | Time Taken | + + + + | Blood Pressure | - | - | + + + + | Pulse | - | - | + + + + | Temperature | - | - | + + + + | Respiratory Rate | - | - | + + + + | Oxygen Saturation | - | - | + + + + | Inhaled Oxygen | - | - | | Concentration | | | + + + + | Weight | 78.5 kg (173 lb) | 12/03/2016 1:01 PM PDT | + + + + | Height | 165.1 cm (5' 5") | 12/03/2016 1:01 PM PDT | + + + + | Body Mass Index | 28.79 | 12/03/2016 1:01 PM PDT | + + + + Plan of Treatment + + + + + | Health [...] | + + + + + | Breast Cancer | | | | | Screening | 8 | | | | (Mammogram) | | | | + + + + + | Colon Cancer | | | | | Screening | 8 | | | | (Colonoscopy) | | | | + + + + + | Vaccine: Zoster (1 | | | | | of 2) | 8 | | | + + + + + | Vaccine: Influenza | | 03/18/2015 | | | (#1) | 8 | | | + + + + + Results Not on filefrom Last 3 Months Insurance + +--------+ +------+-------+ + | Payer | Benefi | Subscriber | Type | Phone | Address | | | t Plan | ID | | | | | | / | | | | | | | Group | | | | | + +--------+ +------+-------+ + | MEDICARE | MEDICA | [id number] | | | [address] | | | RE | | | | [place] [id number] | | | IP-OP | | | | | + +--------+ +------+-------+ + | MEDICAID | [employer] | [id number] | | | [address] | | | N | | | | [place] | | | [place] | | | | [phone] | | | PURCHASING ANALYST | | | | | + +--------+ +------+-------+ + + +--------+ +--------+ + + | Guarantor Name | Accoun | Relation to | Date | Phone | Billing Address | | | t Type | Patient | of | | | | | | | | | | + +--------+ +--------+ + + | [facility] | Person | Self [birth year] | Home: | [address] | | | al/Fam | | [phone] | [phone] [place] [phone] | | | [place] | | | [phone] | | + +--------+ +--------+ + +
--- OUTSIDE RECORDS SUMMARY | ~2018-02-14 | XMS | Encounter Summary ---
Demographics + + + | Address | [address] | | | [place] [address] | + + + | Home Phone | | + + + | Preferred Language | Unknown | + + + | Marital Status | | + + + | Anglican Affiliation | 1013 | + + + | Race | Unknown | + + + | Ethnic Group | Unknown | + + + Author + + + | Author | [facility] | | | and [place] | + + + | Organization | [facility] | | | and [facility] | [...] | + + +---------+ + | Radha oH | ECON | Unknown | | + + +---------+ + Care Team Providers + +------+ + | Care Card Cutter Helper Name | Role | Phone | + +------+ + | Chris Sanabria PA-C | PCP | | + +------+ + Reason for Visit + + + | Reason | Comments | + + + | Pulmonary Disease | Yearly follow up | | Appointment | | + + + Encounter Details +--------+---------+ + + + | Date | Type | Department | Care Team | Description | +--------+---------+ + + + | 12/03/ | Office | [facility] | Guy Martínez, | COPD, moderate (HCC) | | 2018 | Visit | PULMONARY [address] | MD Beka Oconnor | (Primary Dx); COPD | | | | [place], | [place], Level II | exacerbation (HCC); | | | | [place] [address] | [place] | Hypoxemia | | | | [phone] | [id number] | | | | | | | | +--------+---------+ + + + Social History + + [...] + + + as of this encounter Last Filed Vital Signs + + + + | Vital Sign | Reading | Time Taken | + + + + | Blood Pressure | 102/64 | 12/03/2017 1049 PDT | + + + + | Pulse | 114 | 12/03/2017 1049 PDT | + + + + | Temperature | - | - | + + + + | Respiratory Rate | - | - | + + + + | Oxygen Saturation | 93% | 12/03/20171048 PDT | + + + + | Inhaled Oxygen | - | - | | Concentration | | | + + + + | Weight | 78 kg (171 lb 15.3 | 12/03/20171048 PDT | | | oz) | | + + + + | Height | 165.1 cm (5' 5") | 12/03/20171048 PDT | + + + + | Body Mass Index | 28.62 | 12/03/20171048 PDT | + + + + in this encounter Instructions Patient Instructions - Guy Martínez MD - 12/03/2017 1100 PDT Prednisone tablets Brand Names: Deltasone, Predone, Sterapred, Sterapred DS What is this medicine? PREDNISONE (PRED ni sone) is a corticosteroid. It is commonly used to treat inflammation of the skin, joints, lungs, and other organs. Common conditions treated include asthma, allerg ies, and arthritis. It is also used for other conditions, such as blood disorders and diseas es of the adrenal glands. How should I use this medicine? Take this medicine by mouth with a glass of water. Follow the directions on the prescriptio n label. Take this medicine with food. If you are taking this medicine once a day, take it i n the morning. Do not take more medicine than you are told to take. Do not suddenly stop joanna ing your medicine because you may develop a severe reaction. Your doctor will tell you how m uch medicine to take. If your doctor wants you to stop the medicine, the dose may be slowly lowered over time to avoid any side effects. Talk to your certified medical aide regarding the use of this medicine in children. Special care may be needed. What side effects may I notice from receiving this medicine? Side effects that you should report to your doctor or health residential care facility manager as soon as p ossible: allergic reactions like skin rash, itching or hives, swelling of the face, lips, or tong ue changes in emotions or moods changes in vision depressed mood eye pain fever or chills, cough, sore throat, pain or difficulty passing urine increased thirst swelling of ankles, feet Side effects that usually do not require medical attention (report to your doctor or health residential care facility manager if they continue or are bothersome): confusion, excitement, restlessness headache nausea, vomiting skin problems, acne, thin and shiny skin trouble sleeping weight gain What may interact with this medicine? Do not take this medicine with any of the following medications: metyrapone mifepristone This medicine may also interact with the following medications: aminoglutethimide amphotericin B aspirin and aspirin-like medicines barbiturates certain medicines for diabetes, like glipizide or glyburide cholestyramine cholinesterase inhibitors cyclosporine digoxin diuretics ephedrine female hormones, like estrogens and control pills isoniazid ketoconazole NSAIDS, medicines for pain and inflammation, like ibuprofen or naproxen phenytoin rifampin toxoids vaccines warfarin What if I miss a dose? If you miss a dose, take it as soon as you can. If it is almost time for your next dose, ta lk to your doctor or health residential care facility manager. You may need to miss a dose or take an extra dose. Do not take double or extra doses without advice. Where should I keep my medicine? Keep out of the reach of children. Store at room temperature between 15 and 30 degrees C (59 and 86 degrees F). Protect from l ight. Keep container tightly closed. Throw away any unused medicine after the expiration talia e. What should I tell my health care provider before I take this medicine? They need to know if you have any of these conditions: Gabrielle's syndrome diabetes glaucoma heart disease high blood pressure infection (especially a virus infection such as chickenpox, cold sores, or herpes) kidney disease liver disease mental illness myasthenia gravis osteoporosis seizures stomach or intestine problems thyroid disease an unusual or allergic reaction to lactose, prednisone, other medicines, foods, dyes, or preservatives or trying to get breast-feeding What should I watch for while using this medicine? Visit your doctor or health residential care facility manager for regular checks on your progress. If you a re taking this medicine over a prolonged period, carry an identification card with your name and address, the type and dose of your medicine, and your doctor's name and address. This medicine may increase your risk of getting an infection. Tell your doctor or health ca re professional if you are around anyone with measles or chickenpox, or if you develop sores or blisters that do not heal properly. If you are going to have surgery, tell your doctor or health residential care facility manager that you hav e taken this medicine within the last twelve months. Ask your doctor or health residential care facility manager about your diet. You may need to lower the amou nt of salt you eat. This medicine may affect blood sugar levels. If you have diabetes, check with your doctor o r health residential care facility manager before you change your diet or the dose of your diabetic medicine . NOTE:This sheet is a summary. It may not cover all possible information. If you have questi ons about this medicine, talk to your doctor, pharmacist, or health care provider. Copyright 2018 [employer] in this encounter Progress Notes Guy Martínez MD - 12/03/2017 1100 PDTFormatting of this note may be different from raina rojo original. Pulmonary Follow Up 12/03/2017 HPI Ama Dooley is a 62 y.o. female patient of Chris Sanabria PA-C here today for follo w up of Gold Stage II COPD. The last pulmonary clinic visit was on 06/24/16. Since their last appointment they feel like their breathing issues have been fluctuating some. Over the last month or so Ama has noted increase shortness of breath and coughing. Her u se of short acting bronchodilators has mildly increased. They have not had any acute pulmonary illnesses. The patient has not required a prednisone taper since our last clinic appointment. Likewise Ama has not required antibiotics for a COPD exacerbation since our last clinic appointment. The patient is currently on a daily regimen of as needed albuterol/ipratropium for their CO PD. sometime within the last year she stopped Spiriva. They do not feel like this medicati on regimen is/are controlling their symptoms. Currently she is using their short acting bro nchodilator, Combivent, 3 times a day. They are using their Duoneb nebulizer, 3-4 times a da y. Currently the patient is able to walk several 100 feet at their own pace on level ground be fore developing dyspnea. They are not exercising regularly. Their typical exercise consists of walking. Ama are not enrolled in cardiac/pulmonary rehabilitation. They have not compl eted pulmonary rehabilitation in the past. Ama does cough chronically and does not produce mucous. Coughing paroxysms and presynopal symptoms. They have not had hemoptysis since our last appointment. She has been evaluated for nocturnal oxygen. They currently are using nocturnal oxygen. Mehreen rojo is currently on 2 LPM at night while sleeping. They have not reported recent symptoms of nasal congestion, runny nose or post nasal drip. The patient have not received this year's influenza vaccination. They are up to date with their Pneumovax but Prevnar 13. Past Medical History Past Medical History: Diagnosis Date Acid reflux disease Anxiety Asthma uncertain if dx was present Brachial neuritis or radiculitis NOS Cervical radiculopathy 01/22/2015 Chronic low back pain 11/14/2014 Chronic neck pain 11/14/2014 Chronic radicular pain of lower back 11/14/2014 COPD (chronic obstructive pulmonary disease) (HCC) DDD (degenerative disc disease), cervical 11/14/2014 DDD (degenerative disc disease), lumbar 11/14/2014 Depression (emotion) Dysphagia Facet arthritis of cervical region ([facility]) 01/22/2015 Foraminal stenosis of cervical region 01/22/2015 Full dentures GERD (gastroesophageal reflux disease) Hard of hearing bilateral hearing aids High cholesterol Hypertension Lumbar foraminal stenosis 01/22/2015 Lumbar radiculopathy 01/22/2015 Sacroiliitis, not elsewhere classified (HCC) 11/14/2014 Social History: She reports that she quit smoking about 2 years ago. Her smoking use included Cigarettes. S he started smoking about 45 years ago. She has a 45.00 pack-year smoking history. She has ne bull used smokeless tobacco. She reports that she drinks alcohol. She reports that she does n ot use drugs. Allergies: Allergies Allergen Reactions Paroxetine Swelling Medications: Current Outpatient Prescriptions: albuterol-ipratropium (COMBIVENT RESPIMAT) 100-20 mcg/puff inhaler, Inhale 1 puff into the lungs every 4 hours as needed for Shortness of Breath., Disp: 1 Inhaler, Rfl: 3 albuterol-ipratropium 2.5-0.5 mg/3 mL SOLN, Take 3 mLs by nebulization every 4 hours a s needed for Shortness of Breath., Disp: , Rfl: amitriptyline (ELAVIL) 100 MG tablet, Take 100 mg by mouth nightly. None x 24hours, Di sp: , Rfl: ARIPIPRAZOLE PO, Take by mouth., Disp: , Rfl: atorvaSTATin (LIPITOR) 40 mg tablet, Take 40 mg by mouth Daily., Disp: , Rfl: Bisacodyl (DULCOLAX PO), Take by mouth as needed., Disp: , Rfl: clobetasol (TEMOVATE) 0.05% ointment, Apply topically Twice a week., Disp: , Rfl: clonazePAM (KLONOPIN) 0.5 mg tablet, Take 0.5 mg by mouth 2 times daily., Disp: , Rfl: cyclobenzaprine (FLEXERIL) 10 mg tablet, Take 0.5-1 tablets by mouth every 6 hours as needed for Muscle spasms., Disp: 90 tablet, Rfl: 1 DULoxetine (CYMBALTA) [address] capsule, Take 60 mg by mouth Daily., Disp: , Rfl: estrogens, conjugated, (PREMARIN) 0.625 mg tablet, Take 0.625 mg by mouth. 2 times a w [place], Disp: , Rfl: gabapentin (NEURONTIN) 300 mg capsule, Take one tablet orally on day 1 Take one tablet orally in the morning and the evening on day two Take one tablet with breakfast, lunch, and dinner daily until instructed otherwise., Disp: 180 capsule, Rfl: 1 lisinopril (PRINIVIL, ZESTRIL) 10 mg tablet, Take 10 mg by mouth Daily., Disp: , Rfl: Melatonin 1 MG TABS, Take 5 mg by mouth nightly., Disp: , Rfl: Mirabegron (MYRBETRIQ PO), Take by mouth., Disp: , Rfl: omeprazole (PRILOSEC) 20 mg capsule, Take 20 mg by mouth every morning (before )., Disp: , Rfl: oxygen, Inhale 2 L into the lungs nightly., Disp: , Rfl: predniSONE (DELTASONE) 10 mg tablet, 4 tabs daily in morning with food. Please decreas e by 1 tab every 2 days until taper is complete., Disp: 20 tablet, Rfl: 0 Probiotic Product (PROBIOTIC DAILY PO), Take 1 tablet by mouth Daily., Disp: , Rfl: raNITIdine (ZANTAC) 150 mg tablet, Take 150 mg by mouth Daily., Disp: , Rfl: simvastatin (ZOCOR) 40 mg tablet, Take 40 mg by mouth nightly., Disp: , Rfl: Immunizations: Immunization History Administered Date(s) Administered INFLUENZA 65 Y OR >, TRIVALENT HIGH-DOSE 03/18/2015 PNEUMOCOCCAL POLYSACCHARIDE 23-VALENT (PPSV23) 04/02/2015 PNEUMOCOCCAL, UNSPECIFIED FORMULATION 04/12/2008 Objective BP 102/64 | Pulse 114 | Ht 1.651 m (5' 5") | Wt 78 kg (171 lb 15.3 oz) | SpO2 93% | BM I 28.62 kg/m repeat pulse 100 Physical Exam Constitutional: She is oriented to person, place, and time and well-developed, well-nourish ed, and in no distress. HENT: Head: Normocephalic. Nose: No mucosal edema. Right sinus exhibits no frontal sinus tenderness. Left sinus exhibi ts no frontal sinus tenderness. Mouth/Throat: Oropharynx is clear and moist and mucous membranes are normal. Neck: Trachea normal. Neck supple. No JVD present. Cardiovascular: Normal rate, regular rhythm, S1 normal and S2 normal. No murmur heard. Pulmonary/Chest: No accessory muscle usage. No respiratory distress. She has decreased mayra th sounds in the right lower field and the left lower field. She has wheezes (diffuse end ex piratory). She has no rhonchi. She has no rales. Musculoskeletal: She exhibits no edema. Lymphadenopathy: She has no cervical adenopathy. Neurological: She is alert and oriented to person, place, and time. Gait normal. Skin: Skin is warm and intact. No cyanosis. Nails show no clubbing. Psychiatric: Affect normal. Data: None Assessment 1. COPD exacerbation likely related to recent worsening of air quality. My suspicion re garding an underlying bacterial infection is not high. Increase use of albuterol/ipratropiu m via a Respimat inhaler and nebulizer. I have suggested the patient that we instituted a prednisone taper. Ms. Dooley is agreeable to this recommendation. Patient understands the potential side effects of prednisone. 2. COPD Gold stage II. Over the last 18 or so months Ms. Dooley has discontinued Spiriva . She is using her Combivent Respimat and DuoNeb. Patient is abstinent tobacco. 3. Hypoxemia stable O2 requirements on oxygen at 2 L/m. Plan 1. Prednisone taper starting at 40 mg a day and decreasing by 10 mg every 2 days. 2. No antibiotics at this time. 3. Pulmonary clinic follow-up appointment to assess the status of the patient's symptoms i n 2 weeks' time. CC: Christi Pavon this encounter Plan of Treatment +--------+---------+ + + + | Date | Type | Specialty | Care Team | Description | +--------+---------+ + + + | 07/15/ | Office | Pulmonology | Guy Martínez, | | | 2018 | Visit | | MD Beka Oconnor | | | | | | [place], [place] | | | | | | [place] | | | | | | [id number] | | | | | | | | +--------+---------+ + + + as of this encounter Visit Diagnoses + + | Diagnosis | + + | COPD, moderate (HCC) - Primary | + + | Chronic airway obstruction, not elsewhere classified | + + | COPD exacerbation (HCC) | + + | Obstructive chronic bronchitis with exacerbation | + + | Hypoxemia | + +
--- OUTSIDE RECORDS SUMMARY | ~2018-02-14 | XMS | Encounter Summary ---
Demographics + + + | Address | [address] | | | [place] [address] | + + + | Home Phone | | + + + | Preferred Language | Unknown | + + + | Marital Status | | + + + | Bahai Affiliation | 1013 | + + + | Race | Unknown | + + + | Ethnic Group | Unknown | + + + Author + + + | Author | and [facility] | | | and [facility] | + + + | Organization | and [facility] | | | and [facility] | [...] Team Providers + +------+ + | Care Merchant Seaman Name | Role | Phone | + +------+ + | Chris Sanabria PA-C | PCP | | + +------+ + Reason for Visit +--------+ + | Reason | Comments | +--------+ + | COPD | 4 wk follow up | +--------+ + Encounter Details +--------+---------+ + + + | Date | Type | Department | Care Team | Description | +--------+---------+ + + + | 01/14/ | Office | [facility] | Guy Martínez, | COPD, moderate (HCC) | | 2018 | Visit | PULMONARY [address] | (Primary Dx); | | | | [place], | [place], Level II | Hypoxemia; Need for | | | | [place] [address] | [place] | influenza | | | | [phone] | [address] | vaccination; Need | | | | | | for pneumococcal | | | | | | vaccine | +--------+---------+ + + + Social History [...] + | Blood Pressure | 142/80 | 01/14/20181124 PDT | + + + [...] Height | 165.1 cm (5' 5") | 01/14/20181124 PDT | + + + + | Body Mass Index | 29.13 | 01/14/20181124 PDT | + + + + in this encounter Instructions Patient Instructions - Guy Martínez MD - 01/14/2018 1130 PDTFormatting of this note m ay be different from the original. Exercise: Adding Intensity You have been exercising for 30 minutes most days of the week. Now you can move on to the n ext stage: increasingthe intensity. This means doing your activity in one or more of these ways: Longer. Exercise for 30 minutes or more without a break. Faster. Hike, run, or skate fast enough to raise your heart rate moderately as if you had walked fast to catch a bus. More often. Doyour activity 4 to 6 times a week instead of 1 to 3 times. Not just gym class Be creative.You can reach your health and fitness goals in many ways. Try some of these a ctivities: Team sports, like basketball or soccer Social or recreational activities, like hiking or dancing Individual exercise, like cycling, swimming, or skating Group fitness classes, like aerobic classes or weight training Safety first Whatever activity you choose, think about safety: Wear the right safety gear and shoes for your activity. Drink plenty of water during and after workouts. Wear light-colored clothing if you re out when it s dark. Make time to warm up before you exercise and cool down after. Carry ID (identification) with you if you re out alone. And be sure someone knows wher e you re going. If you re on foot, travel against traffic (except on blind corners). If you re on a bike, go with traffic. Obey the rules of the road. Tips for sticking with it Find a workout partner or sports club. If you know someone is expecting you, you ll be less likely to skip your workout. Pack a workout bag with everything you need. Then it s ready when you are. Choose a few different activities so you ll stay interested. Make it fun! What will help you to stick with it? 1. 2. 3. Date Last Reviewed: 06/10/201719990421-6961 [employer]. [address] [facility], [place] [address]. All righ ts reserved. This information is not intended as a substitute for professional medical care. Always follow your healthcare professional's instructions. in this encounter Progress Notes Guy Martínez MD - 01/14/2018 1130 PDTFormatting of this note may be different from raina rojo original. Pulmonary Follow Up 01/14/2018 HPI Ama Dooley is a 62 y.o. female patient of Chris Sanabria PA-C here today for follo w up of Gold Stage II COPD. The last pulmonary clinic visit was on 12/17/17. Since their last appointment they feel like their breathing issues have been decreased. At the time the patient's last clinic appointme nt we instituted and Spiriva. Subsequently less in the way coughing is reported. The patie nt shortness of breath has not significantly changed.. They have not had any acute pulmonary illnesses. The patient has not required a prednisone taper since our last clinic appointment. Likewise Ama has not required antibiotics for a COPD exacerbation since our last clinic appointment. The patient is currently on a daily regimen of Spiriva for their COPD. They do feel like t his medication regimen is/are controlling their symptoms. Currently she is using their shor t acting bronchodilator, Combivent, 4 times a day. They are using their Duoneb nebulizer, 0 times a day. Currently the patient is able to walk 1.[address] of [address] at their own pace on level ground before developing dyspnea. They are not exercising regularly. Their typical exercise consis ts of minimla walking. Ama are not enrolled in cardiac/pulmonary rehabilitation. They hav e not completed pulmonary rehabilitation in the past. Ama does cough chronically and does not produce mucous. They have not had hemoptysis sin ce our last appointment. She has been evaluated for nocturnal oxygen. They currently are using nocturnal oxygen. Mehreen rojo is currently on 2 LPM at night while sleeping. They report excellent compliance. They have not reported recent symptoms of nasal congestion, runny nose or post nasal drip. The patient have not received this year's influenza vaccination. They are up to date with their Pneumovax but not Prevnar 13. Past Medical History Past Medical [...] (emotion) Dysphagia Facet arthritis of cervical region (HCC) 01/22/2015 Foraminal stenosis of cervical region 01/22/2015 [...] Di sp: , Rfl: ARIPIPRAZOLE PO, Take 20 mg by mouth Daily., Disp: , Rfl: atorvaSTATin (LIPITOR) 40 mg tablet, Take 40 mg by mouth Daily., Disp: , Rfl: baclofen (LIORESAL) 10 mg tablet, Take 10 mg by mouth Daily as needed., Disp: , Rfl: Bisacodyl (DULCOLAX PO), Take by mouth as needed., Disp: , Rfl: clobetasol (TEMOVATE) 0.05% ointment, Apply topically Twice a week., Disp: , Rfl: clonazePAM (KLONOPIN) 0.5 mg tablet, Take 0.5 mg by mouth 2 times daily., Disp: , Rfl: DULoxetine (CYMBALTA) [address] capsule, Take 60 mg by mouth Daily., Disp: , Rfl: estrogens, conjugated, (PREMARIN) 0.625 mg tablet, Take 0.625 mg by mouth. 2 times a w [place], Disp: , Rfl: gabapentin (NEURONTIN) 300 mg capsule, Take 300 mg by mouth 3 times daily., Disp: , Rf l: lisinopril (PRINIVIL, ZESTRIL) 10 mg tablet, Take 10 mg by mouth Daily., Disp: , Rfl: Melatonin 1 MG TABS, Take 5 mg by mouth nightly as needed, may repeat x 1., Disp: , Rf l: omeprazole (PRILOSEC) 20 mg capsule, Take 20 mg by mouth every morning (before break st)., Disp: , Rfl: oxygen, Inhale 2 L into the lungs nightly., Disp: , Rfl: raNITIdine (ZANTAC) 150 mg tablet, Take 150 mg by mouth Daily., Disp: , Rfl: simvastatin (ZOCOR) 40 mg tablet, Take 40 mg by mouth nightly., Disp: , Rfl: tiotropium (SPIRIVA RESPIMAT) 2.5 mcg/puff inhaler, Inhale 2 puffs into the lungs Kerwin y., Disp: 1 Inhaler, Rfl: 5 Immunizations: Immunization History Administered Date(s) Administered INFLUENZA 65 Y OR >, TRIVALENT HIGH-DOSE 03/18/2015 INFLUENZA, UNSPECIFIED FORMULATION 02/06/2011 PNEUMOCOCCAL POLYSACCHARIDE 23-VALENT (PPSV23) 04/02/2015 PNEUMOCOCCAL, UNSPECIFIED FORMULATION 04/12/2008 Objective BP 142/80 | Pulse 86 | Ht 1.651 m (5' 5") | Wt 79.4 kg (175 lb 0.7 oz) | SpO2 92% Comme nt: RA | BMI 29.13 kg/m Physical Exam Data: None. Assessment 1. COPD Gold stage II. Currently treated with Spiriva and as needed DuoNeb/Combivent Re spimat. Significant shortness of breath remains despite Spiriva. It is possible that Ms. Jessica saucedo has significant underlying deconditioning. The patient would likely benefit from pulnc nary rehab. Ms. Dooley is in need of a seasonal influenza vaccination and Prevnar. She is up-to-date respect to her Pneumovax. 2. Persistent cough likely related to recent COPD exacerbation. I suggested the patient that she monitor her symptoms closely. If the cough does not resolve within a month or so I would suggest a CT scan of the chest given her risk for pulmonary malignancy. 3. Hypoxemia stable nocturnal hypoxemia. Plan 1. Prevnar 13 and quadrivalent flu shot today. 2. Referral to pulmonary rehab at [facility]. 3. The interval between pulmonic clinic follow-up appointments will be lengthened to 6 mon ths. 4. Continue Spiriva along with as needed Combivent/DuoNeb. CC: Christi Pavon this encounter Plan of Treatment +--------+---------+ + + + | Date | Type | Specialty | Care Team | Description | +--------+---------+ + + + | 07/15/ | Office | Pulmonology | Guy Martínez, | | | 2018 | Visit | | [place] [address] | | | | | | [place], Level II | | | | | | [place], [place] | | | | | | [id number] | | | | | | | | +--------+---------+ + + + as of this encounter Visit Diagnoses + + | Diagnosis | + + | COPD, moderate (HCC) - Primary | + + | Chronic airway obstruction, not elsewhere classified | + + | Hypoxemia | + + | Need for influenza vaccination | + + | Need for prophylactic vaccination and inoculation against influenza | + + | Need for pneumococcal vaccine | + + | Need for prophylactic vaccination against streptococcus pneumoniae (pneumococcus) | + +
--- OUTSIDE RECORDS SUMMARY | ~2018-02-14 | XMS | Encounter Summary ---
Demographics + + + | Address | [address] | | | [place] [address] | + + + | Home Phone | | + + + | Preferred Language | Unknown | + + + | Marital Status | | + + + | Zoroastrianism Affiliation | 1013 | + + + | Race | Unknown | + + + | Ethnic Group | Unknown | + + + Author + + + | Author | [facility] | | | and [facility] | + + + | Organization | [facility] | | | and [facility] | [...] Team Providers + +------+ + | Care Security Administrator Name | Role | Phone | + [...] + + | 12/03/ | Office | [facility] | Guy Martínez, | COPD, moderate (HCC) | | 2018 | Visit | PULMONARY [address] | [place] | (Primary Dx); COPD | | | | [place], | [place], Level II | exacerbation (HCC); | | | | [place] [address] | [place] | Hypoxemia | | | | [phone] | [address] | | | | | [...] avoid any side effects. Talk to your disability program navigator regarding the use of this medicine in children. Special care may be needed. What side effects may I notice from receiving this medicine? Side effects that you should report to your doctor or health client care specialist as soon as p ossible: allergic reactions [...] attention (report to your doctor or health client care specialist if they continue or are bothersome): confusion, [...] ta lk to your doctor or health client care specialist. You may need to miss a dose [...] this medicine? Visit your doctor or health client care specialist for regular checks on your progress. If [...] have surgery, tell your doctor or health client care specialist that you hav e taken this medicine within the last twelve months. Ask your doctor or health client care specialist about your diet. You may need to lower the amou nt of salt you eat. This medicine may affect blood sugar levels. If you have diabetes, check with your doctor o r health client care specialist before you change your diet or the [...] (emotion) Dysphagia Facet arthritis of cervical region ([facility]) 01/22/2015 Foraminal stenosis of cervical region 01/22/2015 [...] mg by mouth. 2 times a w [place], Disp: , Rfl: gabapentin (NEURONTIN) 300 mg [...] [place] | | | | | | [address] | | | | | | | [...]
--- OUTSIDE RECORDS SUMMARY | ~2018-02-14 | XMS | Clinical Summary ---
Demographics + + + | Address | [address] | | | [place] [address] | + + + | Home Phone | | + + + | Preferred Language | Unknown | + + + | Marital Status | | + + + | Scientologist Affiliation | 1013 | + + + | Race | Unknown | + + + | Ethnic Group | Unknown | + + + Author + + + | Author | [facility] | | | and [facility] | + + + | Organization | [facility] | | | and [facility] [...] Team Providers + +------+ + | Care Senior Safety Management Consultant Name | Role | Phone | + [...] + | 01/14/ | Office | | uGy Martínez, | COPD, moderate (HCC) | | [...] [place] | | | | | | [address] | | | | | | | [...] +--------+--------+ +--------+--------+--------+ | Imp Spn Nelly Peek [id number] - | Generi | Anteri | [employer] - | | 07/02/ | [id number] | | [id number]: Qty: 1 | c | or: | MEDT | | 2024 | 1 / | | on 10/23/2016 by David, | | Spine | | | | /[id number] | | Margarito Ramírez DO | | Cervjosue | | | | | | | | al | | | | | + +--------+--------+ +--------+--------+--------+ | Imp Spn Nelly Peek [id number] - | Generi | Anteri | [employer] - | | 05/15/ | [id number] | | [id number]: Qty: 1 | c | or: | MEDT | | 2024 | 1 / | | on 10/23/2016 by David, | | Spine | | | | /[id number] | | Margarito Ramírez DO | | Cervic | | | | | | | | al | | | | | + +--------+--------+ +--------+--------+--------+ | Imp Spn Nelly Peek [id number] - | Generi | Anteri | [employer] - | | 07/02/ | [id number] | | [id number]: Qty: 1 | c | or: | [...] | [employer] - | | 06/21/ | [id number] | | [id number]: Qty: 1 | | or: | MEDT | | 2020 | [id number] | | on 10/23/2016 by David, | | Spine | | | | 2-100 | | Margarito Ramírez DO | | Cervic | | | | / | | | | al | | | | | + +--------+--------+ +--------+--------+--------+ | Plate Ant Dennis Cerv | Plate | Anteri | [employer] - | | | [id number] | | 57.5mm - [id number]: | | or: | MEDT | | | | | Qty: 1 on 10/23/2016 by | | Spine | | | | | | Margarito Hernandez DO | | Cervic | | | | | | | | al | | | | | + +--------+--------+ +--------+--------+--------+ | Screw Slf-Drl V/A 4.0x14mm - | Screw | Anteri | [employer] | | | [id number] | | [id number]: Qty: 7 on | | or: | [...] | Anteri | [employer] | | | [id number] | | [id number]: Qty: 1 on | | or: | [...] +--------+ +---------+ | MEDICARE | MEDICA | [id number] | Medica | [phone] | | [...] Self | [birth year] | Home: | [address] | | | al/[place] | | 1956 | [phone] | [place] [address] | | | [place] | | | [phone] | | + +--------+ +--------+ + +
--- OUTSIDE RECORDS SUMMARY | ~2018-02-14 | XMS | Encounter Summary ---
Demographics + + + | Address | [address] | | | [place] [address] | + + + | Home Phone | | + + + | Preferred Language | Unknown | + + + | Marital Status | | + + + | Sikhism Affiliation | 1013 | + + + | Race | Unknown | + + + | Ethnic Group | Unknown | + + + Author + + + | Author | [facility] | | | and [facility] | + + + | Organization | [facility] | | | and [facility] [...] Team Providers + +------+ + | Care Epic Director Name | Role | Phone | + +------+ + | Chris Sanabria PA-C | PCP | | + +------+ + Reason for Visit +--------+ + | Reason | Comments | +--------+ + | COPD | 2 wk follow up | +--------+ + Encounter Details +--------+---------+ + + + | Date | Type | Department | Care Team | Description | +--------+---------+ + + + | 12/17/ | Office | [facility] | Guy Martínez, | COPD, moderate (HCC) | | 2018 | Visit | PULMONARY [address] | (Primary Dx); | | | | [place], | [place], Level II | Hypoxemia | | | | [place] [address] | [place] | | | | | [phone] | [address] | | | | | [...] + + + | Blood Pressure | 130/82 | 12/17/2017 1324 PDT | + + + + | Pulse | 108 | 12/17/2017 1324 PDT | + + + + | Temperature | - | - | + + + + | Respiratory Rate | - | - | + + + + | Oxygen Saturation | 94% | 12/17/20171323 PDT | + + + + | Inhaled Oxygen | - | - | | Concentration | | | + + + + | Weight | 78.7 kg (173 lb 8 | 12/17/20171323 PDT | | | oz) | | + + + + | Height | 165.1 cm (5' 5") | 12/17/2017 1324 PDT | + + + + | Body Mass Index | 28.87 | 12/17/20174 PDT | + + + + in this encounter Instructions Patient Instructions - Guy Martínez MD - 12/17/2017 1330 PDT Tiotropium respiratory inhalation spray (Spiriva Respimat) Brand Name: Spiriva Respimat What is this medicine? TIOTROPIUM ([place] TRO pee um) is a bronchodilator. It helps open up the airways in your emmanuel ngs to make it easier to breathe. This medicine is used to treat chronic obstructive pulmona ry disease (COPD), including emphysema and chronic bronchitis. It is also used to treat asth ma. Do not use this medicine for an acute attack. How should I use this medicine? This medicine is inhaled through the mouth. It is used once per day. Follow the directions on the prescription label. Take your medicine at regular intervals. Do not take your medicin e more often than directed. Do not stop taking except on your doctor's advice. Make sure yolanda t you are using your inhaler correctly. Ask you doctor or health care provider if you have a ny questions. Talk to your bridge saw operator regarding the use of this medicine in children. While this drug m ay be prescribed for children as young as 6 years for selected conditions, precautions do ap ply. What side effects may I notice from receiving this medicine? Side effects that you should report to your doctor or health small animal caretaker as soon as p ossible: allergic reactions like skin rash or hives, swelling of the face, lips, or tongue breathing problems right after inhaling your medicine changes in vision chest pain difficulty breathing or wheezing that increases or does not go away fast, irregular heartbeat general ill feeling or flu-like symptoms stomach pain trouble passing urine or change in the amount of urine Side effects that usually do not require medical attention (report to your doctor or health small animal caretaker if they continue or are bothersome): constipation cough dizziness dry mouth sore throat What may interact with this medicine? This medicine may also interact with the following medications: atropine antihistamines for allergy, cough and cold certain medicines for bladder problems like oxybutynin, tolterodine certain medicines for stomach problems like dicyclomine, hyoscyamine certain medicines for travel sickness like scopolamine certain medicines for Parkinson's disease like benztropine, trihexyphenidyl ipratropium What if I miss a dose? If you miss a dose, use it as soon as you can. If it is almost time for your next dose, use only that dose and continue with your regular schedule. Do not use double or extra doses. Where should I keep my medicine? Keep out of the reach of children. Store at a room temperature between 15 and 30 degrees C (59 and 86 degrees F). Do not freez e. The inhaler should be discarded after 3 months or when the inhaler becomes locked, whiche bull comes first. Throw away any unopened packages after the expiration date. What should I tell my health care provider before I take this medicine? They need to know if you have any of these conditions: bladder problems or difficulty passing urine glaucoma kidney disease prostate disease an unusual or allergic reaction to tiotropium, ipratropium, atropine, other medicines, f oods, dyes, or preservatives or trying to get breast-feeding What should I watch for while using this medicine? Visit your doctor or health small animal caretaker for regular checks on your progress. Tell you r doctor if your symptoms do not improve. Do not use more medicine than directed. If your sy mptoms get worse while you are using this medicine, call your doctor right away. Do not get the this medicine in your eyes. It can cause irritation, pain, or blurred vision . You may get dizzy. Do not drive, use machinery, or do anything that needs mental alertness until you know how this medicine affects you. Do not stand or sit up quickly, especially if you are an older patient. This reduces the risk of dizzy or fainting spells. Clean the inhaler as directed in the patient information sheet that comes with this medicin e. NOTE:This sheet is a summary. It may not cover all possible information. If you have questi ons about this medicine, talk to your doctor, pharmacist, or health care provider. Copyright 2018 [employer] in this encounter Progress Notes Guy Martínez MD - 12/17/2017 1330 PDTFormatting of this note may be different from raina rojo original. Pulmonary Follow Up 12/17/2017 HPI Ama Dooley is a 62 y.o. female patient of Chris Sanabria PA-C here today for follo w up of Gold Stage II COPD. The last pulmonary clinic visit was on 12/03/17. Since their last appointment they feel like their breathing issues have been decreasing. Following a course of prednisone Ama notes improved symptoms. She is coughing somewhat a zay baseline.. They have had any acute pulmonary illnesses. The patient has required a prednisone taper si nce our last clinic appointment. Likewise Ama has not required antibiotics for a COPD ex acerbation since our last clinic appointment. The patient is currently on a daily regimen of as needed DuoNeb or Combivent for their COPD . They do not feel like this medication regimen is/are controlling their symptoms. Current ly she is using their short acting bronchodilator, Combivent, 4-6 times a day. They are usin g their Duoneb nebulizer, 3-4 times a day. Currently the patient is able to walk 50-100 feet at their own pace on level ground before developing dyspnea. They are not exercising regularly. Their typical exercise consists of wa [place]king on town. Ama are not enrolled in cardiac/pulmonary rehabilitation. They have not co mpleted pulmonary rehabilitation in the past. Ama does [...] with their Pneumovax but not Prevnar 13. The patient states that she has been abstinent tobacco since August 2015. Past Medical History Past Medical History: Diagnosis [...] mg by mouth. 2 times a w [place], Disp: , Rfl: gabapentin (NEURONTIN) 300 mg capsule, Take 300 mg by mouth 3 times daily., Disp: , Rf l: lisinopril (PRINIVIL, ZESTRIL) 10 mg tablet, Take 10 mg by mouth Daily., Disp: , Rfl: Melatonin 1 MG TABS, Take 5 mg by mouth nightly as needed, may repeat x 1., Disp: , Rf l: Mirabegron (MYRBETRIQ PO), Take by mouth., Disp: [...] 04/02/2015 PNEUMOCOCCAL, UNSPECIFIED FORMULATION 04/12/2008 Objective BP 130/82 | Pulse 108 | Ht 1.651 m (5' 5") | Wt 78.7 kg (173 lb 8 oz) | SpO2 94% Commen t: Room Air | BMI 28.87 kg/m Physical Exam Constitutional: She is oriented to [...] and the left lower field. She has no wheezes. She has no rhonchi. She has no rales. Musculoskeletal: She exhibits no edema. Lymphadenopathy: She has no cervical adenopathy. Neurological: She is alert and oriented to person, place, and time. Gait normal. Skin: Skin is warm and intact. No cyanosis. Nails show no clubbing. Psychiatric: Affect normal. Data: None Assessment 1. COPD Gold stage II. Recent COPD exacerbation treated with prednisone. Patient's sym ptoms are gradually returning to baseline. Currently Ama uses short acting bronchodilator s more frequently than ideal. In the past the patient used Spiriva HandiHaler without adver se effects. I have suggested to Ama that we initiate the use of a long-acting bronchodilator. Given prior response to Spiriva we will reinitiate Spiriva but this time with a Respimat. 2. Hypoxemia stable O2 requirements at 2 L/m at night while sleeping. Plan 1. Spiriva Respimat 2 inhalations once daily. 2. The interval between pulmonary clinic follow-up appointments will be lengthened to or w eeks. 3. Will assess response to Spiriva with follow-up. 4. Seasonal influenza vaccination and Prevnar 13 with follow-up in 4 weeks. CC: Christi Pavon this encounter Plan of [...] | | | | | | [place], [place] | | | | | | [id number] | | | | | | | | +--------+---------+ + + + as of this encounter Visit Diagnoses + + | Diagnosis | + + | COPD, moderate (HCC) - Primary | + + | Chronic airway obstruction, not elsewhere classified | + + | Hypoxemia | + +
--- OUTSIDE RECORDS SUMMARY | ~2018-02-14 | XMS | Clinical Summary ---
Demographics + + + | Address | [address] | | | [place] [address] | + + + | Home Phone | | + + + | Preferred Language | Unknown | + + + | Marital Status | | + + + | Jehovah'S Witness Affiliation | Unknown | + + + | Race | Unknown | + + + | Ethnic Group | Unknown | + + + Author + + + | Author | [facility] [employer] [facility] | + + + | Organization | [facility] [employer] [facility] | + + + | Address | Unknown | + + + | Phone | Unavailable | + + + Support +--------+ +---------+ + | Name | Relationship | Address | Phone | +--------+ +---------+ + | No,One | ECON | Unknown | | +--------+ +---------+ + Care Team Providers + +------+ + | Care Handwriting Expert Name | Role | Phone | + [...] +------+-------+ + | MEDICARE | MEDICA | [id number] | | | [address] | | | RE | | | | [place] [address] | | | IP-OP | | | | | + +--------+ +------+-------+ + | MEDICAID | EASTER | [id number] | | | [address] | | | N | | | | [place] | | | [place] | | | | [address] | | | RISK PREVENTION ENGINEER | | | | | + +--------+ [...] Self | [birth year] | Home: | [address] | | | al/Fam | | [phone] | [place] [address] | | | [place] | | | [phone] | | + +--------+ +--------+ + +
--- OUTSIDE RECORDS SUMMARY | ~2018-02-14 | XMS | Encounter Summary ---
Demographics + + + | Address | [address] | | | [place] [address] | + + + | Home Phone | | + + + | Preferred Language | Unknown | + + + | Marital Status | | + + + | Samaritan Affiliation | 1013 | + + + | Race | Unknown | + + + | Ethnic Group | Unknown | + + + Author + + + | Author | [facility] | | | and [place] | + + + | Organization | [facility] | | | and [place] | [...] Team Providers + +------+ + | Care Facility Maintenance Supervisor Name | Role | Phone | + +------+ + | Chris Sanabria PA-C | PCP | | + +------+ + Encounter Details +--------+ + + + + | Date | Type | Department | Care Team | Description | +--------+ + + + + | 11/26/ | Ancillary | [facility] | Provider, | | | 2018 | Orders | [facility] | [address] | | | | | IMAGING | [address] | | | | | [phone] | [place] [address] | | +--------+ + + + + [...] [place] | | | | | | [place], [place] | | | | | | [place] | | | | | | [address] | | | | | | | | +--------+---------+ + + + as of this encounter Results XR Cervical Spine 2 [...]
--- OUTSIDE RECORDS SUMMARY | ~2018-02-14 | XMS | Encounter Summary ---
Demographics + + + | Address | [address] | | | [place] [address] | + + + | Home Phone | | + + + | Preferred Language | Unknown | + + + | Marital Status | | + + + | Voodoo Affiliation | 1013 | + + + | Race | Unknown | + + + | Ethnic Group | Unknown | + + + Author + + + | Author | [facility] | | | and [facility] | + + + | Organization | [facility] | | | and [place] | + + + | Address | [...] Team Providers + +------+ + | Care Administrative Underwriter Name | Role | Phone | + [...] + + | 12/17/ | Office | [facility] | Guy Martínez, | COPD, moderate (HCC) | | 2018 | Visit | PULMONARY [address] | (Primary Dx); | | | | [place], | [place], Level II | Hypoxemia | | | | [place] [address] | [place] | | | | | [phone] | [address] | | | | | [...] have a ny questions. Talk to your statement clerks supervisor regarding the use of this medicine in children. While this drug m ay be prescribed for children as young as 6 years for selected conditions, precautions do ap ply. What side effects may I notice from receiving this medicine? Side effects that you should report to your doctor or health career professional as soon as p ossible: allergic reactions [...] attention (report to your doctor or health career professional if they continue or are bothersome): constipation [...] this medicine? Visit your doctor or health career professional for regular checks on your progress. Tell [...] mg by mouth. 2 times a w [place], Disp: , Rfl: gabapentin (NEURONTIN) 300 mg [...] | | | | | | [place], [place] | | | | | | [id number] | | | | | | | | +--------+---------+ + + + as of this encounter Visit Diagnoses + + | Diagnosis | + + | COPD, moderate (HCC) - Primary | + + | Chronic airway obstruction, not elsewhere classified | + + | Hypoxemia | + +
--- OUTSIDE RECORDS SUMMARY | ~2018-02-14 | XMS | Encounter Summary ---
Demographics + + + | Address | [address] | | | [place] [address] | + + + | Home Phone | | + + + | Preferred Language | Unknown | + + + | Marital Status | | + + + | Latter-Day Affiliation | 1013 | + + + | Race | Unknown | + + + | Ethnic Group | Unknown | + + + Author + + + | Author | [facility] | | | and [facility] | + + + | Organization | [facility] | | | and [place] [...] Team Providers + +------+ + | Care Electronic Bench Technician Name | Role | Phone | + [...] + + | 01/14/ | Office | [facility] | Guy Martínez, | COPD, moderate (HCC) | | 2018 | Visit | PULMONARY [address] | (Primary Dx); | | | | [place], | [place], [place] | Hypoxemia; Need for | | | | [place] [address] | [place] | influenza | | | | [phone] | [address] | vaccination; Need | | | | [...] it? 1. 2. 3. Date Last Reviewed: 06/10/201719992037-1466 [employer]. [address] [facility], [place] [address]. All righ ts reserved. This information is [...] mg by mouth. 2 times a w [place], Disp: , Rfl: gabapentin (NEURONTIN) 300 mg [...] deconditioning. The patient would likely benefit from pulut nary rehab. Ms. Dooley is in need [...] today. 2. Referral to pulmonary rehab at [facility]. 3. The interval between pulmonic clinic [...] 2018 | Visit | | [address] [place] | | | | | | [place], [place] | | | | | | [place], [place] | | | | | | [id number] | | | | | | | [...]
--- OUTSIDE RECORDS SUMMARY | ~2018-02-14 | XMS | Encounter Summary ---
Demographics + + + | Address | [address] | | | [place] [address] | + + + | Home Phone | | + + + | Preferred Language | Unknown | + + + | Marital Status | | + + + | Mormonism Affiliation | 1013 | + + + | Race | Unknown | + + + | Ethnic Group | Unknown | + + + Author + + + | Author | [facility] | | | and [place] | + + + | Organization | [facility] [...] Team Providers + +------+ + | Care Sand Wheeler Name | Role | Phone | + [...] [address] | | | | | [phone] | [place] [address] | | +--------+ + + + + [...] [place] | | | | | | [place], [place] | | | | | | [place] | | | | | | [address] | | | | | | | [...]
--- OUTSIDE RECORDS SUMMARY | ~2018-02-14 | XMS | Encounter Summary ---
Demographics + + + | Address | [address] | | | [place] [address] | + + + | Home Phone | | + + + | Preferred Language | Unknown | + + + | Marital Status | | + + + | Voodoo Affiliation | 1013 | + + + | Race | Unknown | + + + | Ethnic Group | Unknown | + + + Author + + + | Author | [facility] | | | and [place] | + + + | Organization | [facility] | | | and [place] | [...] Team Providers + +------+ + | Care Detailer Name | Role | Phone | + [...] [address] | | | | | [phone] | [place] [address] | | +--------+ + + + + [...] | 2019 | Visit | | [address] | | | | | | [place], [place] | | | | | | [place], [place] | | | | | | [address] | | | | | | | [...]
[~2018-02-14 12:39] MED LIST changes: +CENTRUM SILVER1 EAC3 PO; +CLOBETASOL PROP15 GM TOP; +CLONAZEPAM0.5 MG PO; +CYCLOBENZAPRINE10 MG PO; +CYMBALTA30 MG PO; +CYMBALTA60 MG PO; +INCRUSE ELLI62.5 MCG INH; +LIPITOR40 MG PO; +OMEPRAZOLE20 MG PO; +PREMARIN0.625 MG PO; +PREPARATION H1 EAC3 PR; +SPIRIVA18 MCG INH
[2018-02-14] MEDS ORDERED: CYCLOBENZAPRINE10 MG PO (15:49)
[2018-02-14] MEDS ORDERED: NORCO 5-325 TA1 EACH PO (15:49)
== END 2018-02-14 16:07 | disposition home or self-care (01) ==
LOC: ED 12:39
DX: M62.830 Muscle spasm of back (principal); J44.9 Chronic obstructive pulmonary disease, unspecified; I10 Essential (primary) hypertension; Z87.891 Personal history of nicotine dependence; Z88.8 Allergy status to other drugs, medicaments and biological substances; Z79.899 Other long term (current) drug therapy
CPT/HCPCS: 71046; 99283

== ENCOUNTER 2018-04-29 12:32 | Emergency (ER) | payer MEDICARE ==
[~2018-04-29] VITALS: Ht 165.1 cm; Wt 76.7 kg
[~2018-04-29 12:32] MED LIST changes: +NORCO 5-325 TA1 EACH PO
[2018-04-29] MEDS ORDERED: COMBIVENT RESPIM4 GM INH (12:50)
[2018-04-29] MEDS ORDERED: LATUDA40 MG PO (12:51)
== END 2018-04-29 15:13 | disposition home or self-care (01) ==
LOC: ED 12:32
DX: E86.0 Dehydration (principal); R53.1 Weakness; J44.9 Chronic obstructive pulmonary disease, unspecified; I10 Essential (primary) hypertension; Z87.891 Personal history of nicotine dependence; Z88.8 Allergy status to other drugs, medicaments and biological substances; Z79.899 Other long term (current) drug therapy
CPT/HCPCS: 36415; 80053; 81001; 84484; 85025; 94640; 96360; 96361; 99284-25; J7040

== ENCOUNTER 2022-06-10 20:10 | Emergency (ER) | payer OTHER ==
[~2022-06-10] VITALS: Ht 165.1 cm; Wt 54.2 kg
[~2022-06-10 20:10] MED LIST changes: +LATUDA40 MG PO
[2022-06-10] MEDS ORDERED: PROZAC20 MG PO (21:48)
[2022-06-10] MEDS ORDERED: CYMBALTA20 MG PO (21:48)
== END 2022-06-11 00:36 | disposition home or self-care (01) ==
LOC: ED 20:10
DX: J20.9 Acute bronchitis, unspecified (principal); Z20.822 Contact with and (suspected) exposure to COVID-19; I10 Essential (primary) hypertension; Z87.891 Personal history of nicotine dependence; J44.9 Chronic obstructive pulmonary disease, unspecified; Z88.8 Allergy status to other drugs, medicaments and biological substances; Z79.899 Other long term (current) drug therapy
CPT/HCPCS: 71046; 87502; 99285-25; C9803; U0003

== ENCOUNTER 2022-07-17 21:10 | Emergency (ER) | payer OTHER ==
[~2022-07-17] VITALS: Ht 165.1 cm; Wt 53.7 kg
[~2022-07-17 21:10] MED LIST changes: +CYMBALTA20 MG PO; +PROZAC20 MG PO
[2022-07-17] MEDS ORDERED: CLONAZEPAM0.25 MG PO (21:27)
== END 2022-07-17 23:18 | disposition home or self-care (01) ==
LOC: ED 21:10
DX: S70.02XA Contusion of left hip, initial encounter (principal); W07.XXXA Fall from chair, initial encounter; J44.9 Chronic obstructive pulmonary disease, unspecified; I10 Essential (primary) hypertension; Z87.891 Personal history of nicotine dependence; Z88.8 Allergy status to other drugs, medicaments and biological substances; Z79.899 Other long term (current) drug therapy
CPT/HCPCS: 70450; 73502; 99284-25; A9270

== ENCOUNTER 2024-07-05 18:02 | Emergency (ER) | payer MEDICARE ==
[~2024-07-05] VITALS: Ht 165.1 cm; Wt 46.0 kg
[~2024-07-05 18:02] MED LIST changes: +ADULT TUSS100 MG/51 PO; +ALBUTEROL2.5 MG/3 M INH; +AZITHROMYCIN250 MG PO; +CEFDINIR300 MG PO; +CLONAZEPAM0.25 MG PO; +IPRAT-ALBUT 0.5-3 ML INH; +NICODERM CQ1 EAC2 TD; +SPIRIVA RESPIMAT4 GM INH; -SPIRIVA18 MCG INH; +VENTOLIN HFA18 GM INH
[2024-07-05] MEDS ORDERED: ALBUTEROL/IPRATROPIUM 3 ML NEB INH PRN (18:30)
[2024-07-05 19:06] LABS: BASOPHILS 0.2 % (0-2); EOSINOPHILS 0.3 % (0-6); HEMATOCRIT 38.4 % (35.0-50.0); HEMOGLOBIN 13.2 g/dL (12.0-18.0); LYMPHOCYTES 11.9 % (24-44); MCH 30.2 (27-36); MCHC 34.4 g/dl (30-36); MCV 87.6 fl (81-99); MONOCYTES 8.8 % (0-12); NEUTROPHILS 78.8 % (39-80); PLATELET COUNT 193 K/uL (140-440); RBC 4.38 M/ul (4.3-5.7); RDW 12.9 (10.5-15.0)
[2024-07-05 19:28] LABS: ALBUMIN 2.9 g/dL (3.4-5.0); ALBUMIN/GLOBULIN RATIO 0.85 (1.1-2.4); ANION GAP 10.9 (7-21); BILIRUBIN, TOTAL 0.3 mg/dL (0.2-1.0); BUN/CREATININE RATIO 43.39 (6.0-28.6); CALCIUM 8.6 mg/dL (8.5-10.1); CREATININE, SERUM 0.53 mg/dL (0.55-1.02); MAGNESIUM 1.6 mg/dL (1.8-2.4); POTASSIUM 3.9 mmol/L (3.5-5.1); PROTEIN, TOTAL 6.3 g/dL (6.4-8.2)
[2024-07-05] MEDS ORDERED: LORazepam 2 MG/ML VIAL IV ONE (19:30)
[2024-07-05 19:40] LABS: PH, VENOUS 7.654 (7.31-7.41)
[2024-07-05] MEDS ORDERED: LORazepam 2 MG/ML VIAL IM ONE (20:00)
[2024-07-05] MEDS ORDERED: BUDESONIDE 0.5 MG/2 ML VIAL INH ONE (20:45)
[2024-07-05] MEDS ORDERED: ALBUTEROL SULFATE 0.5% 2.5 MG/0.5 ML VIAL INH ONE (20:45)
[2024-07-05] MEDS ORDERED: DEXAMETHASONE SOD PHOS 10 MG/ML VIAL PO ONE (21:00)
[2024-07-05] MEDS ORDERED: MAGNESIUM OXIDE 400 MG TABLET PO ONE (21:30)
[2024-07-05] MEDS ORDERED: TRAMADOL HCL 50 MG HOME.PACK PO ONE (22:15)
[2024-07-05] MEDS ORDERED: LORazepam 1 MG HOME.PACK PO ONE (22:15)
[2024-07-05] MEDS ORDERED: methylPREDNISolone 4 MG HOME.PACK PO ONE (22:15)
[2024-07-05] MEDS ORDERED: KETOROLAC TROMETHAMINE 15 MG/ML VIAL IV ONE (22:15)
[2024-07-05] MEDS ORDERED: AZITHROMYCIN 250 MG HOME.PACK PO ONE (22:15)
[2024-07-05] MEDS ORDERED: KETOROLAC TROMETHAMINE 15 MG/ML VIAL IM ONE (22:45)
[2024-07-06 00:05] VITALS: BP 102/57
--- NOTE | 2024-07-06 22:44 | EKG ---
[facility] [address] [facility] [place] [address] Signed Sinus rhythm with premature atrial complexes Possible Left atrial enlargement Borderline ECG When compared with ECG of 18-JUL-2023 22:26, premature atrial complexes are now present Nonspecific T wave abnormality no longer evident in Inferior leads Nonspecific T wave abnormality no longer evident in Lateral leads Confirmed by Kamilla Larsen MD () on 07/06/2024 10:44:11 PM Electronically Signed By: KAMILLA LARSEN MD 07/06/24 2244 PATIENT NAME: MARTINA PARK Electrocardiogram DATE OF : 59 PHYSICIAN: KAIMLLA LARSEN MD REPORT #: [id number] REPORT IS CONFIDENTIAL AND NOT TO BE RELEASED WITHOUT AUTHORIZATION
== END 2024-07-06 00:06 | disposition home or self-care (01) ==
LOC: ED 18:02
PROVIDERS: Emergency Medicine; Family Medicine
DX: J44.1 Chronic obstructive pulmonary disease with (acute) exacerbation (principal); Z87.891 Personal history of nicotine dependence; I10 Essential (primary) hypertension
CPT/HCPCS: 36415; 71045; 74176; 80053; 82803; 83735; 83880; 84484; 85025; 93005; 93010; 94640; 94644; 96372; 99285-25; A9270; J1100; J1885; J2060

== ENCOUNTER 2024-09-06 10:14 | Emergency (ER) | payer MEDICARE ==
[~2024-09-06] VITALS: Ht 165.1 cm; Wt 54.3 kg
[2024-09-06] MEDS ORDERED: ALBUTEROL/IPRATROPIUM 3 ML NEB INH PRN (10:30)
[2024-09-06] MEDS ORDERED: METOPROLOL SUCC25 MG PO (10:32)
[2024-09-06] MEDS ORDERED: FLUCONAZOLE150 MG PO (10:32)
[2024-09-06] MEDS ORDERED: ALPRAZOLAM0.5 MG PO (10:32)
[2024-09-06] MEDS ORDERED: TRIAMCINOLONE A15 G1 TOP (10:33)
[2024-09-06] MEDS ORDERED: FENOFIBRATE48 MG PO (10:33)
[2024-09-06] MEDS ORDERED: SPIRONOLACTONE25 MG PO (10:34)
[2024-09-06] MEDS ORDERED: ATORVASTATIN CA40 MG PO (10:34)
[2024-09-06] MEDS ORDERED: PREGABALIN50 MG PO (10:34)
[2024-09-06 10:48] LABS: BASOPHILS 0.7 % (0.1-1.2); EOSINOPHILS 3.3 % (0.7-5.8); HEMATOCRIT 47.9 % (34.1-44.9); LYMPHOCYTES 14.9 % (19.3-51.7); MCHC 31.3 g/dL (32.2-35.5); MCV 92.6 fL (79.4-94.8); NEUTROPHILS 76.9 % (34.0-71.1); PLATELET COUNT 219 K/uL (182-369); RBC 5.17 M/uL (3.93-5.22)
[2024-09-06 11:42] LABS: ALBUMIN 3.9 g/dL (3.4-5.0); ALBUMIN/GLOBULIN RATIO 1.15 (1.1-2.4); ANION GAP 9.2 (7-21); BILIRUBIN, TOTAL 0.6 mg/dL (0.2-1.0); BUN/CREATININE RATIO 26.38 (6.0-28.6); CALCIUM 9.2 mg/dL (8.5-10.1); CREATININE, SERUM 0.72 mg/dL (0.55-1.02); POTASSIUM 4.2 mmol/L (3.5-5.1); PROTEIN, TOTAL 7.3 g/dL (6.4-8.2)
[2024-09-06 16:58] VITALS: BP 109/52
--- NOTE | 2024-09-07 20:21 | EKG ---
[facility] [address] [facility] [place] [address] Signed Normal sinus rhythm Cannot rule out Anterior infarct , age undetermined Abnormal ECG When compared with ECG of 05-JUL-2024 18:39, premature atrial complexes are no longer present Confirmed by Ovidio Quiros DO ([id number]) on 09/07/2024 8:21:37 PM Electronically Signed By: OVIDIO QUIROS DO 09/07/242020 PATIENT NAME: MARTINA PARK PAOLA Electrocardiogram DATE OF : 59 PHYSICIAN: OVIDIO QUIROS DO REPORT #: [id number] REPORT IS CONFIDENTIAL AND NOT TO BE RELEASED WITHOUT AUTHORIZATION
== END 2024-09-06 17:05 | disposition home or self-care (01) ==
LOC: ED 10:14
PROVIDERS: Emergency Medicine
DX: J44.9 Chronic obstructive pulmonary disease, unspecified (principal); I10 Essential (primary) hypertension; Z79.899 Other long term (current) drug therapy; Z88.8 Allergy status to other drugs, medicaments and biological substances; Z87.891 Personal history of nicotine dependence
CPT/HCPCS: 36415; 70450; 71045; 80053; 80307; 81001; 83735; 83880; 84484; 85025; 93005; 93010; 94640; 99285-25; G0480